=== PATIENT | male | born 1960 | race Caucasian/White ===

== ENCOUNTER → 2018-03-31 | Outpatient (CLI) | payer OTHER ==
--- NOTE | 2018-03-31 10:44 | DIAGNOSTIC IMAGING REPORT ---
R KNEE 2 VIEWS ROUTINE CLINICAL HISTORY: Right knee pain COMPARISON: None. DISCUSSION: No acute fractures or dislocations are visualized. There are moderate degenerative changes within the patellofemoral joint. There is a spur/loose body at the level of the anterior femorotibial joint space as visualized in the lateral view. IMPRESSION: 1. No acute fractures 2. Degenerative changes Electronically signed by: Aron Denney M.D. 03/31/2018 10:43 AM Dictated Date/Time: 03/31/2018 10:42 AM
--- NOTE | 2018-03-31 10:47 | DIAGNOSTIC IMAGING REPORT ---
L KNEE 1 OR 2 VIEWS ROUTINE CLINICAL HISTORY: 58 years-old Male presenting with BILAT KNEE PAIN. TECHNIQUE: Frontal and lateral views of the left knee were obtained. COMPARISON: None. FINDINGS: Knee joint congruent. Mild medial joint space loss. Minimal osteophytosis noted all 3 compartments. No acute fracture or malalignment. No advanced degenerative change. No radiographic soft tissue abnormality. IMPRESSION: Minimal tricompartmental degenerative change. No acute osseous injury. Electronically signed by: Isak Stevenson M.D. 03/31/2018 10:46 AM Dictated Date/Time: 03/31/2018 10:45 AM
--- NOTE | 2018-03-31 10:49 | DIAGNOSTIC IMAGING REPORT ---
L HIP UNILATERAL 2 VIEWS CLINICAL HISTORY: 58 years-old Male presenting with BILAT KNEE PAIN. TECHNIQUE: Frontal and frog-leg lateral views of the left hip were obtained. COMPARISON: None. FINDINGS: Significant superior joint space loss with osteophytosis and subchondral sclerosis evident at involving both the femoral head and acetabulum. There is also slight deformity of the superior aspect of the left femoral head. No acute fracture or malalignment. Visualized portion of the bony pelvis intact. Calcification of the vas deferentia likely indicates underlying diabetes. No radiographic soft tissue abnormality. IMPRESSION: Advanced degenerative changes of the left hip. No acute osseous injury. Electronically signed by: Isak Stevenson M.D. 03/31/2018 10:48 AM Dictated Date/Time: 03/31/2018 10:46 AM
--- NOTE | 2018-03-31 11:06 | DIAGNOSTIC IMAGING REPORT ---
LUMBAR SPINE 5 VIEWS CLINICAL HISTORY: Bilateral leg pain. Low back pain. FINDINGS: 5 views of the lumbar spine are obtained. No prior studies are available for comparison at the time of dictation. The skeletal structures are osteopenic. There is no radiographic evidence of fracture or malalignment involving the lumbar spine. Anterior and lateral marginal osteophytes are seen throughout. The transverse and spinous processes appear intact. There is no evidence of spondylolysis. Mild facet arthropathy is seen in the lower lumbar region. There is moderate disc space narrowing at L5-S1. Mild disc space narrowing is seen at the remaining lumbar levels. The bony pelvis is intact as imaged. Sclerotic change is noted in the sacroiliac joints. Enthesophytes arise from the anterior superior iliac spine bilaterally. There is mild atherosclerotic calcification of the abdominal aorta. No bowel obstruction is seen. IMPRESSION: 1. No acute bony abnormality is seen involving the lumbar spine. 2. Osteopenia and spondylotic change as above. Dictated: 03/31/2018 10:46 AM Transcribed: 03/31/2018 11:06 AM [facility] Electronically signed by: Zander Parham M.D. 03/31/2018 11:09 AM Dictated Date/Time: 03/31/2018 10:46 AM
[2018-03-31 12:28] LABS: HEMATOCRIT 44.8 % (42-52); HEMOGLOBIN 15.6 g/dL (14.0-18.0); MEAN CELL VOLUME 92.4 fL (80-100); MEAN CORPUSCULAR HEMOGLOBIN 32.2 pg (25-34); MEAN CORPUSCULAR HGB CONC 34.8 g/dl (32-36); MEAN PLATELET VOLUME 9.5 fL (7.4-10.4); PLATELET COUNT 333 K/uL (130-400); RED CELL DISTRIBUTION WIDTH CV 12.8 % (11.5-14.5); RED CELL DISTRIBUTION WIDTH SD 43.1 fL (36.4-46.3); WHITE BLOOD COUNT 5.33 K/uL (4.8-10.8)
[2018-03-31 13:37] LABS: ALBUMIN 4.2 gm/dl (3.4-5.0); ALKALINE PHOSPHATASE 43 U/L (45-117); ALT/SGPT 42 U/L (12-78); AST/SGOT 24 U/L (15-37); BLOOD UREA NITROGEN 16 mg/dl (7-18); CALCIUM 9.2 mg/dl (8.5-10.1); CARBON DIOXIDE 23 mmol/L (21-32); CHOLESTEROL 219 mg/dl (0-200); CREATININE 0.94 mg/dl (0.60-1.40); GLUCOSE 95 mg/dl (70-99); LDL CHOLESTEROL CALCULATED 124 mg/dl; POTASSIUM 4.2 mmol/L (3.5-5.1); SODIUM 138 mmol/L (136-145); TOTAL PROTEIN 7.6 gm/dl (6.4-8.2)
== END | disposition home or self-care (01) ==
LOC: C.LABPVFM 10:10
PROVIDERS: ATTEND Family Medicine
DX: M25.561 Pain in right knee (principal); M25.562 Pain in left knee; M17.11 Unilateral primary osteoarthritis, right knee; M16.12 Unilateral primary osteoarthritis, left hip; M85.88 Other specified disorders of bone density and structure, other site; M47.816 Spondylosis without myelopathy or radiculopathy, lumbar region

== ENCOUNTER 2023-01-24 18:25 | Inpatient (IN) ==
--- NOTE | 2023-01-24 18:51 | ED Triage Note ---
Date of Service January 24, 2023 History of Present Illness This patient was briefly evaluated while in triage. An abbreviated physical exam was performed. This patient is a 62-year-old Male who presents to the ED for evaluation of chest tightness that began today, radiating into the left arm and left jaw. H ypertensive today. No shortness of breath. No cardiac history. Does not take any medications Physical Exam CONSTITUTIONAL: in no acute pain or distress, resting comfortably SKIN: pink, warm, dry CARDIAC: regular rate and rhythm RESPIRATORY: in no respiratory distress, lungs clear to auscultation Initial orders for labs and / or imaging were placed and patient was placed in the waiting area until a bed is available. Please see further documentation for the full ED course.
[2023-01-24] MEDS ORDERED: ASPIRIN CHEW 324 MG PO STA (19:03)
[2023-01-24] MEDS ORDERED: LABETALOL HCL IV 5 MG/ML 20ML IV STA (19:09)
[2023-01-24] MEDS ORDERED: LABETALOL HCL IV 5 MG/ML 20ML IV ONE (19:09)
--- NOTE | 2023-01-24 19:17 | Emergency Department Note ---
Impression & Plan Acute HI, Hypertension, Precordial chest pain, Acute hyperglycemia ED Provider Note NAME: MELANY CHAVEZ AGE: 62 SEX: M : 1960 ARRIVES VIA: Walk-In INFORMANT: [Patient] ED PROVIDER(S): [Zander Rock MD] CHIEF COMPLAINT: Chest pain HISTORY OF PRESENT ILLNESS: The patient is a 62-year-old male who states that he has had chest tightness for about 8 hours. This all started after he was at the dentist. He also feels some left arm pain and discomfort. The pain across the chest has been a 3-5/10. It has not gone away all day. He does not think exertion makes it worse. He is not necessarily short of breath. There has been no sweating or nausea. He has no history of diabetes, high cholesterol or high blood pressure. He does not smoke. He does have a strong family history of coronary disease. The patient states that he has not noticed any chest pain or dyspnea the last few days with exertion or any type of activity. PMHx/PSHx: See Below SOCIAL HISTORY: See Below. PHYSICAL EXAM: GENERAL: Patient is in no acute distress. HEENT: No acute trauma, normocephalic atraumatic, mucous membranes moist, no nasal congestion. NECK: No stridor, no adenopathy, no meningismus, trachea is midline. LUNGS: Clear to auscultation bilaterally, no wheeze, no rhonchi, breath sounds equal. HEART: Without murmurs gallops or rubs, regular rate and rhythm. ABDOMEN: Soft, nontender, bowel sounds positive, no peritonitis. Nontender umbilical hernia. EXTREMITIES: No cyanosis or edema, full range of motion of all the joints without pain or difficulty, no signs for acute trauma. NEUROLOGIC: Oriented x 3, no acute motor or sensory deficits, no focal weakness. SKIN: No rash, no jaundice, no diaphoresis. DIFFERENTIAL DIAGNOSIS: HI, cardiac ischemia, aortic dissection, PE, CHF, anemia, musculoskeletal pain, among others. EMERGENCY DEPARTMENT COURSE/PROCEDURES: Prior/Outside records reviewed: None. ECG per my interpretation: Indication was chest pain. The ECG shows a normal sinus rhythm with a rate of 82. There is some subtle ST elevation in the inferior leads with some ST depression in leads I and aVL. Findings are consistent with acute HI. There are no PVCs, QTc is 413. Compared to an ECG from 13 July 2018, the ST elevation and ST depression changes are new. Continuous Cardiac Monitoring per my interpretation: An order was placed for continuous cardiac monitoring. The monitor shows a rate of with 90 with normal sinus rhythm. Critical Care Note: I have personally spent 39 minutes of critical care time in the direct management of this patient. This includes bedside care, interpretation of diagnostic studies, and testing, discussion with consultants, patient, and family members, and other required patient management activities. This 39 minutes is in excess of all separately billable procedures. MEDICAL DECISION MAKING: There is no leukocytosis or concerning anemia. There is a normal platelet count. No coagulopathy. No renal failure. Glucose was high at over 300. No concerning liver enzyme elevation. Initial troponin was not elevated making cardiac ischemia less likely. ECG demonstrated what appears to be an acute inferior HI with some lateral reciprocal changes. No pancreatitis. The patient appeared to be in a euthyroid state. COVID test returned negative. Chest film did not show mediastinal widening, pneumonia or pneumothorax per my review. Patient presented with chest pain and some left arm discomfort. His ECG suggested an acute inferior HI. A heart alert was called. Patient was hypertensive. He was given IV labetalol. He was given oral aspirin. I did speak with the diabetic educator, Dr. Mckeon. Patient is going to the cardiac catheterization lab. Dr. Mckeon did see the patient here in the ED. He was at bedside. I spoke with the on-call hospitalist, I did speak with the case folder. The patient is aware of all his findings and is aware of our concerns. DISPOSITION: The patient's presentation and findings warrant a hospital stay. 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 SIDE History of discectomy LUMBAR History of tonsillectomy History of tooth extraction History of total hip arthroplasty LEFT Family History (Updated 01/24/23 @ 21:47 by Walter S. Brezovic, TILE BURNER) Father , 86 Family history of diabetes mellitus BORDERLINE Heart disease Hypertension Myocardial infarction Dyslipidemia Mother Heart disease Hypertension Dyslipidemia Social History Smoking Status: Never smoker Second Hand Exposure: No; Hx Alcohol Use: Yes Alcohol type: other Hx Substance Use: No Preferred Language: Lithuanian Communication Ability: Effective Plating Machine Operator Required: No Beliefs That Will Affect Care: None Current Living Situation: Spouse Feels Safe at Home: Yes Assistive Devices: Glasses Allergies Allergies Allergy/AdvReac Type Severity Reaction Status Date / Time No Known Allergies Allergy Verified 12/07/18 12:16 Home Meds Home Medications Medication Instructions Recorded Confirmed loperamide 2 mg tablet (Imodium 1 tab PO QAM 07/07/18 12/07/18 A-D) meloxicam 15 mg tablet (Mobic) 15 mg PO QAM 07/07/18 12/07/18 multivitamin 1 tab PO DAILY 07/07/18 12/07/18 omega [id number]-[id number]-fish oil 1,000 mg 2 cap PO QAM 07/07/18 12/07/18 (120 mg-180 mg) capsule (Fish Oil) vitamins A,C,and E-selenium 1 cap PO DAILY 07/07/18 12/07/18 capsule (Super Antioxidant capsule) naproxen sodium 220 mg tablet 440 mg PO DAILY 12/07/18 12/07/18 (Aleve) Results & Data (ED) Vital Signs Vital Signs - 24 hr 01/24/23 18:25 01/24/23 19:12 01/24/23 19:12 Temperature 36.8 C Temperature Source Temporal Artery Scan Pulse Rate 90 Pulse Rate from SpO2 Sensor Respiratory Rate 20 Respiratory Effort / Characteristics Non-Labored Spontaneous Respiratory Depth Normal Blood Pressure 205/114 H Blood Pressure Mean 144 Pulse Oximetry 96 100 Oxygen Delivery Method Room Air Room Air Room Air Sepsis Recent Fever Within 48 Hours No Sepsis New/Unexplained Change in Mental Status No Sepsis Action Taken by Nursing No Action Required 01/24/23 19:07 01/24/23 19:12 01/24/23 19:12 Temperature Temperature Source Pulse Rate 90 98 H Pulse Rate from SpO2 Sensor 89 99 H Respiratory Rate 18 12 Respiratory Effort / Characteristics Respiratory Depth Blood Pressure 206/104 H Blood Pressure Mean 138 Pulse Oximetry 97 96 Oxygen Delivery Method Sepsis Recent Fever Within 48 Hours Sepsis New/Unexplained Change in Mental Status Sepsis Action Taken by Nursing 01/24/23 19:18 01/24/23 19:18 01/24/23 19:20 Temperature Temperature Source Pulse Rate 81 Pulse Rate from SpO2 Sensor 82 Respiratory Rate 23 Respiratory Effort / Characteristics Respiratory Depth Blood Pressure 206/113 H 180/103 H Blood Pressure Mean 144 128 Pulse Oximetry 96 Oxygen Delivery Method Sepsis Recent Fever Within 48 Hours Sepsis New/Unexplained Change in Mental Status Sepsis Action Taken by Nursing 01/24/23 19:20 01/24/23 20:37 01/24/23 20:38 Temperature Temperature Source Pulse Rate 85 87 Pulse Rate from SpO2 Sensor 84 86 Respiratory Rate 17 28 H Respiratory Effort / Characteristics Respiratory Depth Blood Pressure 156/87 H Blood Pressure Mean 114 Pulse Oximetry 95 95 Oxygen Delivery Method Sepsis Recent Fever Within 48 Hours Sepsis New/Unexplained Change in Mental Status Sepsis Action Taken by Nursing 01/24/23 20:38 01/24/23 20:45 Temperature Temperature Source Pulse Rate 83 85 Pulse Rate from SpO2 Sensor 83 85 Respiratory Rate 20 18 Respiratory Effort / Characteristics Respiratory Depth Blood Pressure Blood Pressure Mean Pulse Oximetry 94 96 Oxygen Delivery Method Sepsis Recent Fever Within 48 Hours Sepsis New/Unexplained Change in Mental Status Sepsis Action Taken by Usp Medications Current Medication List: was personally reviewed by me Laboratory Data Attestation: I reviewed the patient's lab results. 01/24/23 21:04 01/24/23 19:10 Lab Results 01/24/23 01/24/23 01/24/23 Range/Units 19:10 19:10 19:10 WBC 9.52 (4.8-10.8) K/ul RBC 5.34 (4.70-6.10) M/uL Hgb 17.0 (14.0-18.0) g/dl POC Hgb (14.0-18.0) g/dl Hct 47.4 (42.0-52.0) % POC Hct (42-52) % MCV 88.8 (80.0-100.0) fL MCH 31.8 (25.0-34.0) pg MCHC 35.9 (32.0-36.0) g/dL RDW Std Deviation 39.2 (36.4-46.3) fL RDW Coeff of Jimmy 12.1 (11.5-14.5) % Plt Count 331 (130-400) K/uL MPV 9.3 L (9.4-12.4) fL Immature Gran % (Auto) 0.2 % Neut % (Auto) 79.2 % Lymph % (Auto) 14.5 % Sharp % (Auto) 5.0 % Eos % (Auto) 0.4 % Baso % (Auto) 0.7 % Neut # (Auto) 7.53 H (1.40-6.50) K/uL Lymph # (Auto) 1.38 (1.2-3.4) K/uL Sharp # (Auto) 0.48 (0.11-0.59) K/uL Eos # (Auto) 0.04 (0-0.50) K/uL Baso # (Auto) 0.07 (0-0.2) K/uL Immature Gran # (Auto) 0.02 (0.01-0.20) K/uL PT 10.4 (9.0-12.0) Seconds INR 1.0 (0.9-1.1) APTT 25.9 (21.0-31.0) Seconds PTT Ratio 0.9 Activ Coag Time Kaolin (94-140) SECONDS POC Sodium (135-144) mmol/L Sodium 132 L (136-145) mmol/L POC Potassium (3.3-5.0) mmol/L Potassium 4.2 (3.5-5.1) mmol/L POC Chloride (101-112) mmol/L Chloride 100 (98-107) mmol/L Carbon Dioxide 21 (21-32) mmol/L POC Total CO2 (24-31) mmol/L Anion Gap 11 (3-11) POC Anion Gap (16-25) mmol/L POC BUN (7-18) mg/dl BUN 13 (6-23) mg/dl Creatinine 0.99 (0.6-1.4) mg/dl POC Creatinine (0.6-1.3) mg/dl Est Cr Clr Drug Dosing 97.4 ml/min Est GFR ( Amer) 93.6 ml/min Est GFR (Non-Af Amer) 80.7 ml/min BUN/Creatinine Ratio 13.1 (10-20) Glucose 358 H* (70-99(Fasting)) mg/dl POC Glucose (other) (70-99) mg/dl Calcium 9.9 (8.5-10.1) mg/dl POC Ioniz Calcium Brooke (1.12-1.32) mmol/l Magnesium 2.0 (1.7-2.4) mg/dl Total Bilirubin 0.6 (0.2-1.0) mg/dl AST 35 (13-39) U/L ALT 57 H (7-52) U/L Alkaline Phosphatase 43 (34-104) U/L Troponin I High Sens 19.9 (0-20) pg/ml Total Protein 7.6 (6.0-8.3) gm/dl Albumin 4.7 (3.4-5.0) gm/dl Globulin 2.9 (2.5-4.0) gm/dl Albumin/Globulin Ratio 1.6 (0.9-2) Lipase 27 (11-82) U/L SARS-CoV-2, RNA, NAAT (NEGATIVE) 01/24/23 01/24/23 01/24/23 Range/Units 19:13 19:14 20:01 WBC (4.8-10.8) K/ul RBC (4.70-6.10) M/uL Hgb (14.0-18.0) g/dl POC Hgb 17.3 (14.0-18.0) g/dl Hct (42.0-52.0) % POC Hct 51 (42-52) % MCV (80.0-100.0) fL MCH (25.0-34.0) pg MCHC (32.0-36.0) g/dL RDW Std Deviation (36.4-46.3) fL RDW Coeff of Jimmy (11.5-14.5) % Plt Count (130-400) K/uL MPV (9.4-12.4) fL Immature Gran % (Auto) % Neut % (Auto) % Lymph % (Auto) % Sharp % (Auto) % Eos % (Auto) % Baso % (Auto) % Neut # (Auto) (1.40-6.50) K/uL Lymph # (Auto) (1.2-3.4) K/uL Sharp # (Auto) (0.11-0.59) K/uL Eos # (Auto) (0-0.50) K/uL Baso # (Auto) (0-0.2) K/uL Immature Gran # (Auto) (0.01-0.20) K/uL PT (9.0-12.0) Seconds INR (0.9-1.1) APTT (21.0-31.0) Seconds PTT Ratio Activ Coag Time Kaolin 341 H (94-140) SECONDS POC Sodium 134 L (135-144) mmol/L Sodium (136-145) mmol/L POC Potassium 4.2 (3.3-5.0) mmol/L Potassium (3.5-5.1) mmol/L POC Chloride 100 L (101-112) mmol/L Chloride (98-107) mmol/L Carbon Dioxide (21-32) mmol/L POC Total CO2 22 L (24-31) mmol/L Anion Gap (3-11) POC Anion Gap 17.0 (16-25) mmol/L POC BUN 13 (7-18) mg/dl BUN (6-23) mg/dl Creatinine (0.6-1.4) mg/dl POC Creatinine 0.8 (0.6-1.3) mg/dl Est Cr Clr Drug Dosing ml/min Est GFR ( Amer) ml/min Est GFR (Non-Af Amer) ml/min BUN/Creatinine Ratio (10-20) Glucose (70-99(Fasting)) mg/dl POC Glucose (other) 362 H* (70-99) mg/dl Calcium (8.5-10.1) mg/dl POC Ioniz Calcium Brooke 1.20 (1.12-1.32) mmol/l Magnesium (1.7-2.4) mg/dl Total Bilirubin (0.2-1.0) mg/dl AST (13-39) U/L ALT (7-52) U/L Alkaline Phosphatase (34-104) U/L Troponin I High Sens (0-20) pg/ml Total Protein (6.0-8.3) gm/dl Albumin (3.4-5.0) gm/dl Globulin (2.5-4.0) gm/dl Albumin/Globulin Ratio (0.9-2) Lipase (11-82) U/L SARS-CoV-2, RNA, NAAT NEGATIVE (NEGATIVE) 01/24/23 Range/Units 20:11 WBC (4.8-10.8) K/ul RBC (4.70-6.10) M/uL Hgb (14.0-18.0) g/dl POC Hgb (14.0-18.0) g/dl Hct (42.0-52.0) % POC Hct (42-52) % MCV (80.0-100.0) fL MCH (25.0-34.0) pg MCHC (32.0-36.0) g/dL RDW Std Deviation (36.4-46.3) fL RDW Coeff of Jimmy (11.5-14.5) % Plt Count (130-400) K/uL MPV (9.4-12.4) fL Immature Gran % (Auto) % Neut % (Auto) % Lymph % (Auto) % Sharp % (Auto) % Eos % (Auto) % Baso % (Auto) % Neut # (Auto) (1.40-6.50) K/uL Lymph # (Auto) (1.2-3.4) K/uL Sharp # (Auto) (0.11-0.59) K/uL Eos # (Auto) (0-0.50) K/uL Baso # (Auto) (0-0.2) K/uL Immature Gran # (Auto) (0.01-0.20) K/uL PT (9.0-12.0) Seconds INR (0.9-1.1) APTT (21.0-31.0) Seconds PTT Ratio Activ Coag Time Kaolin 275 H (94-140) SECONDS POC Sodium (135-144) mmol/L Sodium (136-145) mmol/L POC Potassium (3.3-5.0) mmol/L Potassium (3.5-5.1) mmol/L POC Chloride (101-112) mmol/L Chloride (98-107) mmol/L Carbon Dioxide (21-32) mmol/L POC Total CO2 (24-31) mmol/L Anion Gap (3-11) POC Anion Gap (16-25) mmol/L POC BUN (7-18) mg/dl BUN (6-23) mg/dl Creatinine (0.6-1.4) mg/dl POC Creatinine (0.6-1.3) mg/dl Est Cr Clr Drug Dosing ml/min Est GFR ( Amer) ml/min Est GFR (Non-Af Amer) ml/min BUN/Creatinine Ratio (10-20) Glucose (70-99(Fasting)) mg/dl POC Glucose (other) (70-99) mg/dl Calcium (8.5-10.1) mg/dl POC Ioniz Calcium Brooke (1.12-1.32) mmol/l Magnesium (1.7-2.4) mg/dl Total Bilirubin (0.2-1.0) mg/dl AST (13-39) U/L ALT (7-52) U/L Alkaline Phosphatase (34-104) U/L Troponin I High Sens (0-20) pg/ml Total Protein (6.0-8.3) gm/dl Albumin (3.4-5.0) gm/dl Globulin (2.5-4.0) gm/dl Albumin/Globulin Ratio (0.9-2) Lipase (11-82) U/L SARS-CoV-2, RNA, NAAT (NEGATIVE) Administered Medications Sodium Chloride (Nss 1000ml) 1,000 mls @ 75 mls/hr IV .[id number] [facility] Stop: 02/23/23 20:44 Last Admin: 01/24/23 21:38 Dose: 75 mls/hr Documented By: IVORY Insulin Aspart (Insulin Aspart Per Unit) 0 units SC ACHS VERA Stop: 02/23/23 22:59 Last Admin: 01/24/23 22:45 Dose: 5 units Documented By: TMG Co-signed By: CP Metoprolol Tartrate (Metoprolol Tartrate 25 Mg Tab) 25 mg PO BID VERA Stop: 02/23/23 20:59 Last Admin: 01/24/23 21:38 Dose: 25 mg Documented By: TMG Discontinued Medications Aspirin (Aspirin Chew 324 Mg) 324 mg PO NOW STA Stop: 01/24/23 19:04 Last Admin: 01/24/23 19:07 Dose: 324 mg Documented By: NATHALIE Fentanyl Citrate (Fentanyl Citrate 100 Mcg/2 Ml Vial) Confirm Administered Dose 100 mcg .ROUTE .STK-MED ONE Stop: 01/24/23 19:23 Last Admin: 01/24/23 20:21 Dose: 25 mcg Documented By: ROSE Heparin Sodium (Porcine) (Heparin (Porcine) 1000 Unit/Ml 10 Ml (Crematorium Operator Use Only)) Confirm Administered Dose 10,000 units .ROUTE .STK-MED ONE Stop: 01/24/23 19:23 Last Admin: 01/24/23 20:20 Dose: 6,000 units Documented By: ROSE Heparin Sodium/Sodium Chloride (Heparin In Nss Infusion 1000 Unit/500 Ml (2 U/Ml) Bag) Confirm Administered Dose 3,000 units IV .STK-MED ONE Stop: 01/24/23 19:23 Last Admin: 01/24/23 20:19 Dose: 3,000 units Documented By: CARMELO Hydralazine HCl (Hydralazine Hcl 20 Mg/Ml Vial) Confirm Administered Dose 20 mg .ROUTE .STK-MED ONE Stop: 01/24/23 19:38 Last Admin: 01/24/23 20:20 Dose: 10 mg Documented By: ROSE Labetalol HCl (Labetalol Hcl Iv 5 Mg/Ml 20ml) 10 mg IV NOW STA Stop: 01/24/23 19:10 Last Admin: 01/24/23 19:10 Dose: 10 mg Documented By: NATHALIE Co-signed By: BO Labetalol HCl (Labetalol Hcl Iv 5 Mg/Ml 20ml) Confirm Administered Dose 10 mg IV .STK-MED ONE Stop: 01/24/23 19:10 Last Admin: 01/24/23 19:12 Dose: Not Given Documented By: NATHALIE Metoprolol Tartrate (Metoprolol Tartrate 1 Mg/Ml Vial) Confirm Administered Dose 5 mg IV .STK-MED ONE Stop: 01/24/23 19:58 Last Admin: 01/24/23 20:20 Dose: 5 mg Documented By: ROSE Metoprolol Tartrate (Metoprolol Tartrate 1 Mg/Ml Vial) Confirm Administered Dose 5 mg IV .STK-MED ONE Stop: 01/24/23 20:05 Last Admin: 01/24/23 20:20 Dose: 5 mg Documented By: ROSE Midazolam HCl (Midazolam Hcl 1 Mg/Ml 2ml Vial) Confirm Administered Dose 2 mg .ROUTE .STK-MED ONE Stop: 01/24/23 19:23 Last Admin: 01/24/23 20:20 Dose: 1 mg Documented By: ROSE Miscellaneous (Icu Protocol For Hyperglycemia) 1 each N/A ACHS VERA Stop: 01/26/23 20:59 Last Admin: 01/24/23 21:38 Dose: 1 each Documented By: IVORY Nicardipine HCl (Nicardipine Hcl Inj 2.5 Mg/Ml 10 Ml Amp) Confirm Administered Dose 25 mg .ROUTE .STK-MED ONE Stop: 01/24/23 19:23 Last Admin: 01/24/23 20:19 Dose: 25 mg Documented By: CARMELO Nitroglycerin/Dextrose (Nitroglycerin/D5w 100mcg/Ml 20ml Syr) Confirm Administered Dose 2,000 mcg .ROUTE .STK-MED ONE Stop: 01/24/23 19:24 Last Admin: 01/24/23 20:19 Dose: 2,000 mcg Documented By: CARMELO Ticagrelor (Ticagrelor 90 Mg Tab) Confirm Administered Dose 180 mg .ROUTE .STK- MED ONE Stop: 01/24/23 20:22 Last Admin: 01/24/23 20:22 Dose: 180 mg Documented By: ROSE Imaging Data Attestation: I personally reviewed and interpreted this imaging study as follows: My Impression: Chest x-ray per my review: There is no mediastinal widening, pneumonia or CHF Discharge Plan Visit Data Chief Complaint: Shortness of Breath/Dyspnea Stated Complaint: SOB,HBP,NO APPETITE, ED Provider: Zander Rock Discharge Problem: Acute HI, Hypertension, Precordial chest pain, Acute hyperglycemia Patient Disposition: Admitted As Inpatient Condition: Serious Discharge Instructions Interventions: ED Discharge Assessment Last Done: 01/24/23 19:30
[2023-01-24] MEDS ORDERED: fentaNYL citrate PF 100 MCG/2 ML VIAL ONE (19:22)
[2023-01-24] MEDS ORDERED: HEPARIN (PORCINE) 1000 UNIT/ML 10 ML (CATH LAB USE ONLY) ONE (19:22)
[2023-01-24] MEDS ORDERED: MIDAZOLAM HCL 1 MG/ML 2ML VIAL ONE (19:22)
[2023-01-24] MEDS ORDERED: niCARdipine HCL INJ 2.5 MG/ML 10 ML AMP ONE (19:22)
[2023-01-24] MEDS ORDERED: NITROGLYCERIN/D5W 100MCG/ML 20ML SYR ONE (19:23)
[2023-01-24 19:25] LABS: Basophils # (auto) 0.07 K/uL (0-0.2); Basophils % (auto) 0.7 %; Eosinophils # (auto) 0.04 K/uL (0-0.50); Eosinophils % (auto) 0.4 %; Hematocrit (blood only) 47.4 % (42.0-52.0); Immature Granulocytes # (auto) 0.02 K/uL (0.01-0.20); Immature Granulocytes % (auto) 0.2 %; Lymphocytes # (auto) 1.38 K/uL (1.2-3.4); Lymphocytes % (auto) 14.5 %; Mean Corpuscular Hemoglobin 31.8 pg (25.0-34.0); Mean Corpuscular Hgb Conc 35.9 g/dL (32.0-36.0); Mean Corpuscular Volume 88.8 fL (80.0-100.0); Mean Platelet Volume 9.3 fL (9.4-12.4); Monocytes # (auto) 0.48 K/uL (0.11-0.59); Neutrophils # (auto) 7.53 K/uL (1.40-6.50); Neutrophils % (auto) 79.2 %; Platelet Count 331 K/uL (130-400); RDW Coefficient of Variation 12.1 % (11.5-14.5); RDW Standard Deviation 39.2 fL (36.4-46.3); Red Blood Count 5.34 M/uL (4.70-6.10); White Blood Count 9.52 K/ul (4.8-10.8)
[2023-01-24 19:25] LABS: iSTAT Creatinine 0.8 mg/dl (0.6-1.3); iSTAT Hemoglobin 17.3 g/dl (14.0-18.0); iSTAT Ionized Calcium 1.2 mmol/l (1.12-1.32); iSTAT Potassium 4.2 mmol/L (3.3-5.0)
[2023-01-24] MEDS ORDERED: hydrALAZINE HCL 20 MG/ML VIAL ONE (19:37)
[2023-01-24 19:48] LABS: Partial Thromboplastin Ratio 0.9; Partial Thromboplastin Time 25.9 Seconds (21.0-31.0); Prothrombin Time 10.4 Seconds (9.0-12.0)
[2023-01-24 19:50] LABS: Albumin Level 4.7 gm/dl (3.4-5.0); Bilirubin,Total 0.6 mg/dl (0.2-1.0); Calcium 9.9 mg/dl (8.5-10.1); Potassium 4.2 mmol/L (3.5-5.1); Troponin I High Sensitivity 19.9 pg/ml (0-20)
[2023-01-24] MEDS ORDERED: METOPROLOL TARTRATE 1 MG/ML VIAL IV ONE ×2 (19:57→20:04)
[2023-01-24 20:14] LABS: Albumin Globulin Ratio 1.6 (0.9-2); BUN Creatinine Ratio 13.1 (10-20); Creatinine Clr Calc Pharmacy 97.4 ml/min; Est GFR (African American) 93.6 ml/min; Est GFR (Non-African American) 80.7 ml/min; Globulin 2.9 gm/dl (2.5-4.0); Total Protein 7.6 gm/dl (6.0-8.3)
[2023-01-24] MEDS ORDERED: TICAGRELOR 90 MG TAB ONE (20:21)
[2023-01-24] MEDS ORDERED: ATROPINE SULFATE 0.1 MG/ML 10ML SYR IV PRN (20:32)
[2023-01-24] MEDS ORDERED: NITROGLYCERIN SL 0.4 MG/TAB TAB SL PRN ×2 (20:32→21:03)
[2023-01-24] MEDS ORDERED: ONDANSETRON INJ 2 MG/ML 2 ML VIAL IV PRN (20:32)
[2023-01-24] MEDS ORDERED: ACETAMINOPHEN 325 MG TAB PO PRN (20:32)
[2023-01-24] MEDS ORDERED: SODIUM CHLORIDE 0.9% 1000ML 1,000 ML IV SCH (20:45)
--- NOTE | 2023-01-24 20:55 | History & Physical Report ---
Date of Service January 24, 2023 Assessment & Plan (1) STEMI (ST elevation myocardial infarction): Plan: 62yo male presenting with inferior STEMI s/p BIANCA x 2 to RCA. Patient is currently doing well. Blood pressure has improved. He denies chest pain or palpitations. -Admit to MICU -Trend troponin q 6 hours x 3 sets -Check 2D echo -Continue DAPT with Brillinta and ASA - initiated post catheterization to be continued for 1-2 years as tolerated -Atorvastatin 40mg po daily -Lisinopril 5mg po daily -Metoprolol 25mg po BID -Check HgbA1C and Lipid panel (2) HTN (hypertension): Plan: Elevated blood pressure in the ER. Patient was administered Labetalol 10mg IV, Nicardipine 25mg and Hydralazine 10mg IV as well as Metoprolol 5mg IV x 2 doses. Patient denies having markedly elevated BP readings in the past. BP presently 165/91. -Metoprolol 25mg po BID initiated -Lisinopril 5mg po daily initiated -Continue to monitor BP History of Present Illness Chief Complaint: Chest pain Primary Care Provider: Siri Reynolds MD 62yo male with no significant past medical history presenting with chest pain. Patient felt fairly well earlier today 01/24/23. He was seen at the dentist after which he developed some left arm pain and discomfort across his chest. He denied diaphoresis, SOB, nausea or exertional chest discomfort. Patient with no significant cardiac risk factors. He was last seen by his PCP in 2018. In the ER EKG with NSR at 82, ST elevation in inferior leads with depressions in I and aVL. Findings concerning for acute inferior STEMI. Heart Alert called from the ER and patient was taken to the concrete laborer. He was found to have stenosis of the mid-RCA with placement of BIANCA x 2 in early mid segment and in the proximal segment of the RCA. Patient was started on DAPT with ASA and Brillinta and transferred to the MICU for overnight care. During my encounter patient with no complaints. He denies chest pain, SOB or palpitations. No pain in right wrist or hand. Allergies Allergy/AdvReac Type Severity Reaction Status Date / Time No Known Allergies Allergy Verified 12/07/18 12:16 Home Medications Medication Instructions Recorded Confirmed Type loperamide 2 mg tablet (Imodium 1 tab PO QAM 07/07/18 12/07/18 History A-D) meloxicam 15 mg tablet (Mobic) 15 mg PO QAM 07/07/18 12/07/18 History multivitamin 1 tab PO DAILY 07/07/18 12/07/18 History omega 9-kmg-ill-fish oil 1,000 mg 2 cap PO QAM 07/07/18 12/07/18 History (120 mg-180 mg) capsule (Fish Oil) vitamins A,C,and E-selenium 1 cap PO DAILY 07/07/18 12/07/18 History capsule (Super Antioxidant capsule) naproxen sodium 220 mg tablet 440 mg PO DAILY 12/07/18 12/07/18 History (Aleve) Past Med/Surg History Medical History Chronic diarrhea Degenerative disc disease, lumbar Family history of diabetes mellitus FATHER-BORDERLINE DM Hyperlipidemia BORDERLINE Osteoarthritis Peripheral neuropathy 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 Beliefs That Will Affect Care: None Current Living Situation: Spouse Feels Safe at Home: Yes Assistive Devices: Glasses Review of Systems Review of Systems: All systems reviewed & are unremarkable except as noted in HPI & below Physical Exam Physical Exam: General: patient resting comfortably, NAD, non-toxic in appearance, AA&O x 4 Skin: warm, dry, intact, no rashes or lesions HEENT: NC/AT, PERRL, EOMI, anicteric sclera, conjunctiva without injection, external ear normal to inspection and nontender, nares patent, moist mucus me mbranes, dentition intact, no oropharyngeal lesions, neck supple, trachea midline, no LAD, no thyromegaly, no JVD Heart: +S1/S2, regular, no m/r/g Lungs: equal air entry bilaterally, no rales/rhonchi/wheezes Abd: +BS, soft, NT/ND, no masses/organomegaly/ascites Ext: warm, 2+ pulses in UE/LE bilaterally, no clubbing/cyanosis or edema, right radial occlusion band present Neuro: nonfocal, patient AA&O x 4, speech intact, no facial droop, moving all extremities on command with equal strength 5/5 Results & Data Results & Data Vital Signs (Past 12 Hours) Vital Signs Temp Pulse Resp BP Pulse Ox O2 Del Method 01/24/23 19:20 85 17 95 01/24/23 19:20 180/103 H 01/24/23 19:18 81 23 96 01/24/23 19:18 206/113 H 01/24/23 19:12 98 H 12 96 01/24/23 19:12 206/104 H 01/24/23 19:07 90 18 97 01/24/23 19:12 Room Air 01/24/23 19:12 100 Room Air 01/24/23 18:25 36.8 C 90 20 205/114 H 96 Room Air Laboratory Results Laboratory Results WBC 9.52 K/ul (4.8-10.8) 01/24/23 19:10 RBC 5.34 M/uL (4.70-6.10) 01/24/23 19:10 Hgb 17.0 g/dl (14.0-18.0) 01/24/23 19:10 POC Hgb 17.3 g/dl (14.0-18.0) 01/24/23 19:13 Hct 47.4 % (42.0-52.0) 01/24/23 19:10 POC Hct 51 % (42-52) 01/24/23 19:13 MCV 88.8 fL (80.0-100.0) 01/24/23 19:10 MCH 31.8 pg (25.0-34.0) 01/24/23 19:10 MCHC 35.9 g/dL (32.0-36.0) 01/24/23 19:10 RDW Std Deviation 39.2 fL (36.4-46.3) 01/24/23 19:10 RDW Coeff of Jimmy 12.1 % (11.5-14.5) 01/24/23 19:10 Plt Count 331 K/uL (130-400) 01/24/23 19:10 MPV 9.3 fL (9.4-12.4) L 01/24/23 19:10 Immature Gran % (Auto) 0.2 % 01/24/23 19:10 Neut % (Auto) 79.2 % 01/24/23 19:10 Lymph % (Auto) 14.5 % 01/24/23 19:10 [place] % (Auto) 5.0 % 01/24/23 19:10 Eos % (Auto) 0.4 % 01/24/23 19:10 Baso % (Auto) 0.7 % 01/24/23 19:10 Neut # (Auto) 7.53 K/uL (1.40-6.50) H 01/24/23 19:10 Lymph # (Auto) 1.38 K/uL (1.2-3.4) 01/24/23 19:10 [place] # (Auto) 0.48 K/uL (0.11-0.59) 01/24/23 19:10 Eos # (Auto) 0.04 K/uL (0-0.50) 01/24/23 19:10 Baso # (Auto) 0.07 K/uL (0-0.2) 01/24/23 19:10 Immature Gran # (Auto) 0.02 K/uL (0.01-0.20) 01/24/23 19:10 PT 10.4 Seconds (9.0-12.0) 01/24/23 19:10 INR 1.0 (0.9-1.1) 01/24/23 19:10 APTT 25.9 Seconds (21.0-31.0) 01/24/23 19:10 PTT Ratio 0.9 01/24/23 19:10 Activ Coag Time Kaolin 275 SECONDS (94-140) H 01/24/23 20:11 POC Sodium 134 mmol/L (135-144) L 01/24/23 19:13 Sodium 132 mmol/L (136-145) L 01/24/23 19:10 POC Potassium 4.2 mmol/L (3.3-5.0) 01/24/23 19:13 Potassium 4.2 mmol/L (3.5-5.1) 01/24/23 19:10 POC Chloride 100 mmol/L (101-112) L 01/24/23 19:13 Chloride 100 mmol/L (98-107) 01/24/23 19:10 Carbon Dioxide 21 mmol/L (21-32) 01/24/23 19:10 POC Total CO2 22 mmol/L (24-31) L 01/24/23 19:13 Anion Gap 11 (3-11) 01/24/23 19:10 POC Anion Gap 17.0 mmol/L (16-25) 01/24/23 19:13 POC BUN 13 mg/dl (7-18) 01/24/23 19:13 BUN 13 mg/dl (6-23) 01/24/23 19:10 Creatinine 0.99 mg/dl (0.6-1.4) 01/24/23 19:10 POC Creatinine 0.8 mg/dl (0.6-1.3) 01/24/23 19:13 Est Cr Clr Drug Dosing 97.4 ml/min 01/24/23 19:10 Est GFR ( Amer) 93.6 ml/min 01/24/23 19:10 Est GFR (Non-Af Amer) 80.7 ml/min 01/24/23 19:10 BUN/Creatinine Ratio 13.1 (10-20) 01/24/23 19:10 Glucose 358 mg/dl (70-99(Fasting)) H* 01/24/23 19:10 POC Glucose 271 mg/dl (70-99) H 01/24/23 21:09 POC Glucose (other) 362 mg/dl (70-99) H* 01/24/23 19:13 Calcium 9.9 mg/dl (8.5-10.1) 01/24/23 19:10 POC Ioniz Calcium Brooke 1.20 mmol/l (1.12-1.32) 01/24/23 19:13 Magnesium 2.0 mg/dl (1.7-2.4) 01/24/23 19:10 Total Bilirubin 0.6 mg/dl (0.2-1.0) 01/24/23 19:10 AST 35 U/L (13-39) 01/24/23 19:10 ALT 57 U/L (7-52) H 01/24/23 19:10 Alkaline Phosphatase 43 U/L (34-104) 01/24/23 19:10 Troponin I High Sens 19.9 pg/ml (0-20) 01/24/23 19:10 Total Protein 7.6 gm/dl (6.0-8.3) 01/24/23 19:10 Albumin 4.7 gm/dl (3.4-5.0) 01/24/23 19:10 Globulin 2.9 gm/dl (2.5-4.0) 01/24/23 19:10 Albumin/Globulin Ratio 1.6 (0.9-2) 01/24/23 19:10 Lipase 27 U/L (11-82) 01/24/23 19:10 SARS-CoV-2, RNA, NAAT NEGATIVE (NEGATIVE) 01/24/23 19:14 Critical Care Time 35 minutes of critical care time PG Care Time/CCT Total # of Minutes Spent Total Time Spent with Patient: Total time spent is greater than 50% in coordination of care (as documented) at patient's floor/unit and/or counseling patient: Coding Level of Care Code None Diagnoses STEMI (ST elevation myocardial infarction) I21.3 HTN (hypertension) I10
--- NOTE | 2023-01-24 20:56 | Critical Care Consultation ---
Date of Consultation January 24, 2023 Assessment & Plan (1) Obesity: (2) HTN (hypertension): (3) STEMI (ST elevation myocardial infarction): (4) Stented coronary artery: (5) Elevated serum glucose: Plan Reason Critically Ill: 62 YOM with no known medical problems, last seen harpreet multani in 2018 for pre-op screening. Patient presents today for fatigue and left arm pain, diagnosed with STEMI and taken emergently to the laborer [facility]. He received 2 BIANCA stents tot he RCA. To the ICU for post procedural monitoring. Neuro - NO acute needs CAM ICU: Negative Cardiac - STEMI, Elevated Blood pressure without the diagnosis of HTN - Patient with Inferior wall STEMI- s/p 2 BIANCA - ECHO in morning - Goal moving forward will be managing and identifying other co-morbidities - Current initial therapy by Cardiology- BB, ASA, Brilinta, Statin - HGB A1c in AM - Lipid Panel in AM - Trend HScTNI - For his elevated BP PRN hydralazine Respiratory - NO acute needs Patient with large neck as well as obesity - STOP BANG- 5 - recommend ROSALBA screening as outpatient to decrease further CV events GI - NO acute needs RENAL/LYTES - NO acute needs - ICU electrolyte protocol - NO acute needs ENDO - Elevated serum glucose without the diagnosis of DM, Metabolic Syndrome - TSH in the morning - Lipid Panel in the morning - HGBA1C - ICU hyper/hypoglycemic protocol HEME - NO acute needs - Antiplatelet medication initiated as above ID - NO clinical suspicion for infectious etiology LINES/IV ACCESS - PIV, Continue use of these lines DVT PROPHYLAXIS - SCDS, ASA, ambulation DISPO: ICU s/p BIANCA stents. Following labs and ECHO in the morning if stable likely able to downgrade from ICU I have personally spent 40 minutes of critical care time in the direct management of this patient. This is a life/limb threatening event. This includes time spent evaluating patient, direct bedside care, chart review, placing orders, interpretation of diagnostic studies, discussion with consultants, patient, and family members, as well as other required patient management activities. This time is exclusive of all separately billable procedures, and teaching time and separate from and in addition to any other critical care service time. Thank you for allowing us to participate in the care of this patient. Please refer to my attending physician's documentation for any further recommendations. History of Present Illness Reason for Consultation: STEMI s/p BIANCA x2 to RCA Requesting Physician: Lance Mckeon Attending Physician: Lance Mckeon MD, PhD History of Present Illness 62 YOM with no reported medical problems. He is on no medications at home other than Coq10 and Glucosamine. Patient does not smoke and drinks very rarely. Patient went to the dentist this morning received Augmentin and had his teeth cleaned. Following this, he went to work. He started to note that he was feeling more tired than normal around 930-1000. He continued on his day without any progression of symptoms, made it home around noon and laid down for a bit to stretch out, but did not sleep. He got up did not eat all of his lunch for just feeling "off". He continued to help his with dinner and while doing that his left arm started to hurt. He then had his drive him to the [facility]. In the EMD the patient was noted to be hypertensive on arrival, he was given 10mg of Labetalol and 324 mg of ASA. He had ECG performed which had new ST elevations in the Inferior leads with reciprocal changes. Heart alert was called and the patient was taken emergently to the cardiac cath suite. Patient was loaded with Brilinta, Heparin, received IV Lopressor and IV Hydralazine. He received 2 BIANCA to the RCA via right radial artery access. He was recovered and transferred to the ICU. Patient is awake and oriented, reports no pain and that his left arm is back to normal. Patient will be monitored overnight for any return of symptoms or ischemia. TR band per protocol. ECG on arrival. Trend HScTNI. ECHO in AM. COVID: NEGATIVE CODE: FULL Consults: Medicine, Cardiology Allergies Allergy/AdvReac Type Severity Reaction Status Date / Time No Known Allergies Allergy Verified 12/07/18 12:16 Home Medications Medication Instructions Recorded Confirmed Type loperamide 2 mg tablet (Imodium 1 tab PO QAM 07/07/18 12/07/18 History A-D) meloxicam 15 mg tablet (Mobic) 15 mg PO QAM 07/07/18 12/07/18 History multivitamin 1 tab PO DAILY 07/07/18 12/07/18 History omega 1-bdq-wzq-fish oil 1,000 mg 2 cap PO QAM 07/07/18 12/07/18 History (120 mg-180 mg) capsule (Fish Oil) vitamins A,C,and E-selenium 1 cap PO DAILY 07/07/18 12/07/18 History capsule (Super Antioxidant capsule) naproxen sodium 220 mg tablet 440 mg PO DAILY 12/07/18 12/07/18 History (Aleve) aspirin 81 mg tablet,delayed 81 mg PO QAM #90 tabs 01/25/23 Rx release atorvastatin 40 mg tablet 40 mg PO QAM #30 tabs 01/25/23 Rx lisinopril 5 mg tablet (Zestril) 5 mg PO QAM #30 tabs 01/25/23 Rx metoprolol tartrate 25 mg tablet 25 mg PO BID #60 tabs 01/25/23 Rx ticagrelor 90 mg tablet (Brilinta) 90 mg PO BID #60 tabs 01/25/23 Rx Patient History Medical History Chronic diarrhea Degenerative disc disease, lumbar Family history of diabetes mellitus FATHER-BORDERLINE DM Hyperlipidemia BORDERLINE Osteoarthritis Peripheral neuropathy 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 SIDE History of discectomy LUMBAR History of tonsillectomy History of tooth extraction History of total hip arthroplasty LEFT Family History (Updated 01/24/23 @ 21:47 by JULES Aldridge) Father , 86 Family history of diabetes mellitus BORDERLINE Heart disease Hypertension Myocardial infarction Dyslipidemia Mother Heart disease Hypertension Dyslipidemia Social History Smoking Status: Never smoker Second Hand Exposure: No; Hx Alcohol Use: Yes Alcohol type: other Hx Substance Use: No Preferred Language: Barbadian Communication Ability: Effective Patient Access Registrar Required: No Beliefs That Will Affect Care: None Current Living Situation: Spouse Feels Safe at Home: Yes Assistive Devices: Glasses Review of Systems Review of Systems: REVIEW OF SYSTEMS: Constitutional: No fever, sweats or chills Eyes: No diplopia, no worsening or blurred vision ENT: normal hearing, no trouble swallowing Respiratory: No cough, sputum, dyspnea at rest or on exertion Cardiovascular: NO chest pain, tightness or palpitations Abdomen: No pain, nausea, vomiting, diarrhea or constipation Musculoskeletal: (+) hip pain, NO calf pain, swelling Neurologic: No weakness, numbness/tingling, or balance problems Psychiatric: No anxiety or depression Skin: No rash or itch Physical Exam Physical Exam: PHYSICAL EXAM: General: awake, alert, no apparent distress Head: Normocephalic, atraumatic ENT: PERRLA, EOMI, no pharyngeal exudate, mucous membranes moist Neuro: AAO x 3, speech clear and appropriate, strength intact bilaterally 5/5, sensation intact and equal all extremities and dermatomes, no pronator drift Chest: equal rise and fall of the chest, no accessory muscle use, no heaves or thrills, Clear to auscultation, on room air, Cardiac: Regular rate and rhythm, telemetry reviewed- NSR, skin warm dry, cap refill <3 seconds, peripheral pulses +2 no JVD, no murmur, no edema GI: NABS x 4 quadrants, soft, nontender to palpation, no rebound, guarding or tenderness : Spontaneously voiding, no pain, no CVA tenderness, Extremities: Normal inspection, no peripheral edema or erythema, calfs nontender to palpation Psych: Normal mood and affect Skin: no rash or erythema Results & Data Results & Data Vital Signs (Past 12 Hours) Vital Signs Temp Pulse Resp BP Pulse Ox O2 Del Method 01/24/23 19:20 85 17 95 01/24/23 19:20 180/103 H 01/24/23 19:18 81 23 96 01/24/23 19:18 206/113 H 01/24/23 19:12 98 H 12 96 01/24/23 19:12 206/104 H 01/24/23 19:07 90 18 97 01/24/23 19:12 Room Air 01/24/23 19:12 100 Room Air 01/24/23 18:25 36.8 C 90 20 205/114 H 96 Room Air Laboratory Results Abnormal lab results 01/24/23 01/24/23 01/24/23 Range/Units 19:10 19:10 19:13 MPV 9.3 L (9.4-12.4) fL Neut # (Auto) 7.53 H (1.40-6.50) K/uL Activ Coag Time Kaolin (94-140) SECONDS POC Sodium 134 L (135-144) mmol/L Sodium 132 L (136-145) mmol/L POC Chloride 100 L (101-112) mmol/L POC Total CO2 22 L (24-31) mmol/L Glucose 358 H* (70-99(Fasting)) mg/dl POC Glucose (70-99) mg/dl POC Glucose (other) 362 H* (70-99) mg/dl ALT 57 H (7-52) U/L 01/24/23 01/24/23 01/24/23 Range/Units 20:01 20:11 21:09 MPV (9.4-12.4) fL Neut # (Auto) (1.40-6.50) K/uL Activ Coag Time Kaolin 341 H 275 H (94-140) SECONDS POC Sodium (135-144) mmol/L Sodium (136-145) mmol/L POC Chloride (101-112) mmol/L POC Total CO2 (24-31) mmol/L Glucose (70-99(Fasting)) mg/dl POC Glucose 271 H (70-99) mg/dl POC Glucose (other) (70-99) mg/dl ALT (7-52) U/L Medications Administered Discontinued Medications Aspirin (Aspirin Chew 324 Mg) 324 mg PO NOW STA Stop: 01/24/23 19:04 Last Admin: 01/24/23 19:07 Dose: 324 mg Documented By: NATHALIE Fentanyl Citrate (Fentanyl Citrate 100 Mcg/2 Ml Vial) Confirm Administered Dose 100 mcg .ROUTE .STK-MED ONE Stop: 01/24/23 19:23 Last Admin: 01/24/23 20:21 Dose: 25 mcg Documented By: ROSE Heparin Sodium (Porcine) (Heparin (Porcine) 1000 Unit/Ml 10 Ml (Fixed Wing Pilot Use Only)) Confirm Administered Dose 10,000 units .ROUTE .STK-MED ONE Stop: 01/24/23 19:23 Last Admin: 01/24/23 20:20 Dose: 6,000 units Documented By: ROSE Heparin Sodium/Sodium Chloride (Heparin In Nss Infusion 1000 Unit/500 Ml (2 U/Ml) Bag) Confirm Administered Dose 3,000 units IV .STK-MED ONE Stop: 01/24/23 19:23 Last Admin: 01/24/23 20:19 Dose: 3,000 units Documented By: CARMELO Hydralazine HCl (Hydralazine Hcl 20 Mg/Ml Vial) Confirm Administered Dose 20 mg .ROUTE .STK-MED ONE Stop: 01/24/23 19:38 Last Admin: 01/24/23 20:20 Dose: 10 mg Documented By: ROSE Labetalol HCl (Labetalol Hcl Iv 5 Mg/Ml 20ml) 10 mg IV NOW STA Stop: 01/24/23 19:10 Last Admin: 01/24/23 19:10 Dose: 10 mg Documented By: NATHALIE Co-signed By: BO Labetalol HCl (Labetalol Hcl Iv 5 Mg/Ml 20ml) Confirm Administered Dose 10 mg IV .STK-MED ONE Stop: 01/24/23 19:10 Last Admin: 01/24/23 19:12 Dose: Not Given Documented By: NATHALIE Metoprolol Tartrate (Metoprolol Tartrate 1 Mg/Ml Vial) Confirm Administered Dose 5 mg IV .STK-MED ONE Stop: 01/24/23 19:58 Last Admin: 01/24/23 20:20 Dose: 5 mg Documented By: ROSE Metoprolol Tartrate (Metoprolol Tartrate 1 Mg/Ml Vial) Confirm Administered Dose 5 mg IV .STK-MED ONE Stop: 01/24/23 20:05 Last Admin: 01/24/23 20:20 Dose: 5 mg Documented By: ROSE Midazolam HCl (Midazolam Hcl 1 Mg/Ml 2ml Vial) Confirm Administered Dose 2 mg .ROUTE .STK-MED ONE Stop: 01/24/23 19:23 Last Admin: 01/24/23 20:20 Dose: 1 mg Documented By: ROSE Nicardipine HCl (Nicardipine Hcl Inj 2.5 Mg/Ml 10 Ml Amp) Confirm Administered Dose 25 mg .ROUTE .STK-MED ONE Stop: 01/24/23 19:23 Last Admin: 01/24/23 20:19 Dose: 25 mg Documented By: CARMELO Nitroglycerin/Dextrose (Nitroglycerin/D5w 100mcg/Ml 20ml Syr) Confirm Administered Dose 2,000 mcg .ROUTE .STK-MED ONE Stop: 01/24/23 19:24 Last Admin: 01/24/23 20:19 Dose: 2,000 mcg Documented By: CARMELO Ticagrelor (Ticagrelor 90 Mg Tab) Confirm Administered Dose 180 mg .ROUTE .STK- MED ONE Stop: 01/24/23 20:22 Last Admin: 01/24/23 20:22 Dose: 180 mg Documented By: JMP ECG Additional Comments: Normal sinus rhythm ST elevation consider inferior injury or acute infarct ACUTE PR / STEMI Consider right ventricular involvement in acute inferior infarct Abnormal ECG When compared with ECG of 13-JUL-2018 11:58, ST now depressed in Lateral leads Coding Level of Care Code 12216 CRITICAL CARE 1ST 30-74M Diagnoses Obesity E66.9 HTN (hypertension) I10 STEMI (ST elevation myocardial infarction) I21.3 Stented coronary artery Z95.5 Elevated serum glucose R73.9
--- NOTE | 2023-01-24 20:57 | Cardiac Catheterization ---
ACC Data: Commissioning Specialist Cardiac Status Clinical evaluation leading to the procedure CAD Presenation: STEMI Anginal Classification: CCS IV Heart Failure: No Cardiogenic Shock within 24 Hours: No Cardiac Arrest within 24 Hours: No Imaging Studies Past 6 Months: No Stress Studies Past 6 Months: No STEMI OR Non-STEMI Symptom Onset Date: 01/24/23 Symptom Onset Time: 10:00 Thrombolytics: No Coronary Anatomy Dominant: Left Left Main (% Stenosis): Normal LAD (% Stenosis): Distal (Early 50%) D1 (% Stenosis): Normal D2 (% Stenosis): Proximal (50%) Circumflex (% Stenosis): Proximal (Mild) OM1 (% Stenosis): Proximal (30 to 40%) OM2 (% Stenosis): Normal L PL1 (% Stenosis): Normal (Mild luminal irregularities) L PDA (% Stenosis): Normal (Mild luminal irregularities) RCA (% Stenosis): Proximal (Diffuse mild then 70% before first branch) and Mid (100%) Ramus (% Stenosis): Normal Diagnostic Physicians Name: Lance Mckeon MD, PhD Closure Device Percutaneous Entry Location: Radial Closure Device: Radial Band Recommendations: Medical Therapy and/or Counseling and PCI without planned CABG PCI Indication: PCI for STEMI - Unstable First Noted: First EKG Lesion Segment Name: RCA proximal and mid Culprit Artery: Yes Stenosis Prior to Rx (%): 70%, 100% Chronic Total Occlusion: No Pre-Procedure LISSETH Flow: 0 Previously Treated Lesion: No Lesion Complexity: Non-High/Non-C Lesion Length (mm): Proximal 12 mm, mid 10 mm Thrombus Present: Yes Bifurcation Lesion: No Guidewire Across Lesion: Yes Intraprocedure Events Significant Disection: No Perforation: No Cardiac Cath Procedure Full Procedure Date January 24, 2023 Pre-Procedure Diagnosis Pre-Procedure Diagnosis: STEMI AUC Score AUC Score: 09 Post-Procedure Diagnosis Post-Procedure Diagnosis: Severe CAD and Successful PCI Procedure(s) Performed Procedure(s) Performed: Coronary Angiography and Drug Eluting Stent Photography Teacher Lance Mckeon MD, PhD Estimated Blood Loss Estimated Blood Loss: 10 ml Medication(s) Medication(s): Aspirin, Clopidogrel, Fentanyl, Heparin, Hydralazine, Lidocaine 1%, Metoprolol, Nicardipine, Nitroglycerin and Versed Summary of Findings Brief description: Patient was brought to the cardiac catheterization suite where he was shaved and prepped in a sterile fashion. Sedated using IV Versed and fentanyl. Soft tissues of the right wrist were anesthetized using 2 mL of 1% Xylocaine. The right radial artery was accessed using a modified Seldinger technique and a 6 [place]ian radial artery glide sheath was placed. Patient was provided anticoagulation with IV heparin and antispasmodics including nicardipine and nitroglycerin. All catheters were advanced and exchanged over a 0.035 J-tip wire. Left coronary angiography in orthogonal views with a 5 Bah[place]ian JL 3.5 diagnostic catheter. Right coronary angiography in orthogonal views with 6 [place]ian JR4 guide catheter. Note: Patient developed bradycardia during diagnostic cath. We next proceeded with PCI. ACT was checked and additional heparin was provided as needed to maintain therapeutic anticoagulation. A BMW universal guidewire was advanced through the guide catheter and under fluoroscopic was positioned and advanced distally in the RCA. [employer] angiography revealed return of flow into the RCA beyond the lesion. The lesion was then predilated using a 1.5 x 12 mm mini trek balloon inflated initially at 8 rebecca with secondary inflation up to 14 rebecca. The balloon was removed and house worker general angiography performed. Further predilatation was performed using a 2.0 x 12 mm mini trek balloon across the lesions up to 14 rebecca. This balloon was then removed and angiography was performed. Just beyond the large RV marginal branch a 2.25 x 12 mm Yousif drug-eluting stent was advanced and deployed with its proximal edge just beyond the ostium and across the lesion. This was deployed at 12 rebecca. Stent balloon was removed and house worker general angiography performed. A 2.25 x 15 mm [place] drug-eluting stent was then advanced and positioned across the proximal lesion with its distal edge just before the ostium of the RV marginal branch. The stent was then deployed at 14 rebecca. Stent balloon was removed. Supervisor [employer] angiography was performed. The BMW reversal guidewire was removed and final angiographic evaluation was performed in orthogonal views. Guide catheter was removed over the J-wire. Radial artery sheath was removed. Hemostasis was obtained using the TR band. Patient remained hemodynamically stable and asymptomatic. He was returned to the recovery area. This ended the case. Coronary angiography findings: LMT: Large caliber and relatively short. Trifurcates into LAD, ramus, and circumflex. Mild luminal irregularities. LAD: Large caliber and transapical. Proximal segment is free of disease. It gives a large caliber first diagonal which has tortuosity but no significant di sease. Mid LAD has mild diffuse disease. It gives a large caliber branching second diagonal which has proximal 50% stenosis. It becomes tortuous distally. Just after the ostium of the to the early distal diagonal has 50% stenosis. The vessel then becomes tortuous and provides smaller branches. There is mild luminal irregularities. Ramus: Small to medium caliber vessel without significant disease. LCx: This is large caliber and dominant. Travels in the AV groove. Proximal segment has mild luminal irregularities. It gives a large caliber multi branching OM1. This has proximal 30 to 40% stenosis. Its mid and distal segments are tortuous. The mid AV groove circumflex has mild luminal irregularities and is relatively short. It gives a medium to large caliber OM 2 which is tortuous but has no significant disease. The distal AV groove vessel remains large providing an atrial branch and then as it travels distally it becomes increasingly tortuous and bifurcates into a medium caliber posterolateral branch and a large caliber long PDA. These vessels have no more than mild luminal irregularities. RCA: This is a medium to large caliber nondominant vessel. Proximal segment has diffuse mild disease which worsens as it approaches the first RV marginal branch and appears to be 70% stenosed just before the RV marginal. After the RV marginal branch the mid RCA is patent for a few millimeters and then 100% occluded. There is some thrombus and LISSETH 0 flow. PCI findings: 0% residual stenosis post PCI No evidence of dissection or perforation post PCI LISSETH-3 flow post PCI Following PCI the RCA is determined to be nondominant. However, it is long and branching. Becomes increasingly tortuous and before its most distal aspect it is still around a 2.0 mm vessel. Summary: Acute inferior ST elevation PR secondary to occlusion of the apparent nondominant but relatively large caliber RCA. May include RV involvement. Successful PCI of the RCA with implantation of 2 drug-eluting stents. 1 in the early mid segment and 1 in the proximal segment. Dual antiplatelet therapy with aspirin and Brilinta was initiated and will continue for up to 1 to 2 years. Initiate guideline directed medical therapy for secondary prevention of coronary disease including; high intensity statin therapy, beta-nguyễn, LENNY inhibitor/ARB as tolerated. Obtain a 2D echocardiogram Hemodynamics Rest Ao:: 147/91 mmHg, mean 114 mmHg Final Ao: 122/61 mmHg, mean 63 mmHg LV: Not performed Recommendations Recommendations: Medical Therapy and/or Counseling and PCI without planned CABG Radiation Exposure (mGy) 2673 mGy, fluoroscopy time 11.2 minutes Contrast (mls) 220 mL Anesthesia 2 mg IV Versed, 50 mcg IV fentanyl Procedural Complication(s) None Disposition ICU I attest to the content of the Intraoperative Record and any orders documented therein. Any exceptions are noted below. [employer]G Card Cath Procedure Codes Cardiac Catheterization Procedure 1: Cardiovascular Cath Procedures: 14804 Coronaries Moderate Sedation Procedure 1: Sedation/Anesthesia: 94805 Mod Sedation by the same physician;Init15 Min Child Age 5 & Up (Initial 15 minutes (total 38 minutes)) Procedure 2: Sedation/Anesthesia: 09155 Mod Sedation by the same physician; Ea [id number] Minutes (Additional 23 minutes (total 38 minutes)) Stenting Procedure 1: Cardiovascular Stent Procedures: 37171 Perc transluminal revascularization of acute sub/total occl, aMI (RCA) PG Care Time/CCT Total # of Minutes Spent Total Time Spent with Patient: Total time spent is greater than 50% in coordination of care (as documented) at patient's floor/unit and/or counseling patient:
[2023-01-24] MEDS ORDERED: ICU Protocol for HYPERglycemia SCH ×2 (21:00→21:03)
--- NOTE | 2023-01-24 21:27 | Pre Anesthesia Assessment ---
Date of Service January 24, 2023 Pre Sedation Assessment Vital Signs Temp Pulse Pulse Resp BP BP Pulse Ox 01/24/23 21:17 36.8 C 82 18 165/91 H 96 01/24/23 21:00 85 19 97 01/24/23 21:00 165/96 H 01/24/23 20:48 85 19 96 01/24/23 20:48 160/80 H 01/24/23 20:45 85 18 96 01/24/23 20:38 83 20 94 01/24/23 20:38 156/87 H 01/24/23 20:37 87 28 H 95 01/24/23 19:20 85 17 95 01/24/23 19:20 180/103 H 01/24/23 19:18 81 23 96 01/24/23 19:18 206/113 H 01/24/23 19:12 98 H 12 96 01/24/23 19:12 206/104 H 01/24/23 19:07 90 18 97 01/24/23 19:12 01/24/23 19:12 100 01/24/23 18:25 36.8 C 90 20 205/114 H 96 O2 Del Method 01/24/23 21:17 Room Air 01/24/23 21:00 01/24/23 21:00 01/24/23 20:48 01/24/23 20:48 01/24/23 20:45 01/24/23 20:38 01/24/23 20:38 01/24/23 20:37 01/24/23 19:20 01/24/23 19:20 01/24/23 19:18 01/24/23 19:18 01/24/23 19:12 01/24/23 19:12 01/24/23 19:07 01/24/23 19:12 Room Air 01/24/23 19:12 Room Air 01/24/23 18:25 Room Air Cardiovascular RRR, no murmur, no edema Respiratory normal respiratory effort, lungs clear to auscultation Pre-Sedation Airway Assessment Smoking Status: Never smoker Mallampati 2 ASA class IV Notes The planned sedation has been discussed with the patient. Informed Consent was obtained. I have identified the patient, determined the appropriateness of sedation and have assessed the patient immediately prior to the procedure. All medicine(s) and interventions are by my order. [facility] [place] Procedure Codes (Charges) Indication for Procedure Indication for procedure: STEMI Sedation/Anesthesia Procedure 1: Sedation/Anesthesia: 39453 Mod Sedation by the same physician;Init15 Min Child Age 5 & Up (Initial 15 min) Total Sedation Time (minutes): 38 Procedure 2: Sedation/Anesthesia: 86562 Mod Sedation by the same physician; Ea [id number] Minutes (Additional 23 min) Total Sedation Time (minutes): 38
--- NOTE | 2023-01-24 21:28 | Post Anesthesia Assessment ---
Date of Service January 24, 2023 Post Sedation Assessment Vital Signs Temp Pulse Pulse Resp BP BP Pulse Ox 01/24/23 21:15 82 20 95 01/24/23 21:15 36.8 C 165/91 H 01/24/23 21:17 36.8 C 82 18 165/91 H 96 01/24/23 21:00 85 19 97 01/24/23 21:00 165/96 H 01/24/23 20:48 85 19 96 01/24/23 20:48 160/80 H 01/24/23 20:45 85 18 96 01/24/23 20:38 83 20 94 01/24/23 20:38 156/87 H 01/24/23 20:37 87 28 H 95 01/24/23 19:20 85 17 95 01/24/23 19:20 180/103 H 01/24/23 19:18 81 23 96 01/24/23 19:18 206/113 H 01/24/23 19:12 98 H 12 96 01/24/23 19:12 206/104 H 01/24/23 19:07 90 18 97 01/24/23 19:12 01/24/23 19:12 100 01/24/23 18:25 36.8 C 90 20 205/114 H 96 O2 Del Method 01/24/23 21:15 01/24/23 21:15 01/24/23 21:17 Room Air 01/24/23 21:00 01/24/23 21:00 01/24/23 20:48 01/24/23 20:48 01/24/23 20:45 01/24/23 20:38 01/24/23 20:38 01/24/23 20:37 01/24/23 19:20 01/24/23 19:20 01/24/23 19:18 01/24/23 19:18 01/24/23 19:12 01/24/23 19:12 01/24/23 19:07 01/24/23 19:12 Room Air 01/24/23 19:12 Room Air 01/24/23 18:25 Room Air Recovery Score Activity: Moves 4 extremities Respiration: Deep Breath/Cough Circulation: +/-20% PreAnes Value Consciousness: Fully Awake Oxygen Saturation: > 92% On Room Air Discharge Sedation Level of Care: Fast Track Phase II Post Sedation Plan On clinical assessment, the patient appears to have tolerated the sedation without complications. Patient is recovering as anticipated. Patient will continue to be monitored by nursing and may be discharged when sedation discharge criteria are met per below protocol. Upon Completions of procedure up to 15 minutes continue every 5 minute vital signs and the P.A.R. score; then discharge to a Phase I or Fast Track to Phase II per the following guidelines: * Discharge Patient to appropriate Phase II area if PAR is 8 or greater or return to pre- procedure baseline. The post - procedure orders will be as directed. * If PAR score is less than 8 or not return to pre-procedure baseline then patient will follow Phase I monitoring till PAR is reached for Phase II. The Phase I may be done in procedure room or may call to secure a Phase I area. * If naloxone or flumazenil are used for reversal, hold in Phase I for continued monitoring from when last reversal dose was given for a minimum of 60 minutes or longer pending the nurse and/or physician discretion of patient condition before discharge to Phase II. Please call the Sedation Physician to re-evaluate and complete post-note for discharge to Phase II area. Do NOT discharge from procedure sedation or Phase 1 until post- sedation evaluation note is complete by procedure /sedation MD Sedation Discharge Instructions to be given to the patient at discharge to home. [facility] Procedure Codes (Charges) Indication for Procedure Indication for procedure: STEMI
[2023-01-24] MEDS: METOPROLOL TARTRATE 25 MG TAB PO SCH (21:38)
--- NOTE | 2023-01-24 21:40 | Cardiology Consultation ---
Date of Consultation January 24, 2023 Assessment & Plan (1) STEMI (ST elevation myocardial infarction): Status post PCI with implantation of 2 drug-eluting stents. He will remain on dual antiplatelet therapy with aspirin 81 mg daily and Brilinta 90 mg p.o. twice daily to complete 1 to 2 years therapy. Also initiating guideline directed medical therapy for secondary prevention including; aspirin, beta-nguyễn, high intensity statin therapy, and LENNY inhibitor/ARB as tolerated. We will obtain an echocardiogram to evaluate LVEF, valvular function, and look at the right ventricle since this may have been involved in his MS. We will also look for additional risk factors including diabetes and thyroid disease. (2) HTN (hypertension): Blood pressure is extremely elevated. Beginning beta-nguyễn, LENNY inhibitor, and we will titrate as needed to achieve target systolic blood pressure. Would try to avoid nitroglycerin use as we do not know his RV involvement. Having said that, his blood pressure has been very elevated and he tolerated intra- arterial nitroglycerin provided in the Top Lift Compressor. (3) Atherogenic dyslipidemia: Patient is considered high risk. High intensity statin therapy with a atorvastatin 40 mg daily is initiated. We need to check a fasting lipid panel to obtain baseline. Plan Patient will be in the ICU for 24 hours. Then, likely transfer to stepdown with total anticipated hospitalization time of 48 hours assuming no complications or new problems. History of Present Illness Reason for Consultation: ST elevation MS Attending Physician: Jessica Hendrickson, History of Present Illness 62-year-old gentleman who developed sudden onset chest tightness, indigestion, after he was at the dentist at around 10:00 this morning. He went home but just did not feel well. He felt the indigestion was secondary to the amoxicillin which had been used at the dentist. However, he continued to worsen through the day and his chest pain and tightness became 5-6 out of 10. He therefore decided to seek medical attention and drove himself with his to the emergency department. There, he had subtle evidence of acute inferior ST elevation MS. The emergency physician called a "heart alert" and I came to see the patient. Patient's blood pressure had been well over 200 systolics on arrival in emergency medicine provided him with IV labetalol. His blood pressure then dropped to the 180s systolic and he stated that he had very little chest pain. A second EKG was performed and no longer demonstrated any ST elevations meeting criteria for AMI. However, there were still subtle elevations and some subtle reciprocal changes. Patient had relatively large Q waves in the inferior leads. After discussion with the patient we decided to proceed with definitive evaluation by coronary angiography. Patient tells me he does not see a physician regularly. Typically only sees his family medicine doctor if he needs treatment for an acute issue such as pain or illness. To his knowledge he has no known chronic medical problems. Patient was taken emergently to the cardiac catheterization suite where he underwent diagnostic coronary angiography. He also had PCI of the nondominant RCA with good angiographic results and complete resolution of his chest pain with samaritan of LISSETH-3 flow. He is now admitted to the ICU. Allergies Allergy/AdvReac Type Severity Reaction Status Date / Time No Known Allergies Allergy Verified 12/07/18 12:16 Home Medications Medication Instructions Recorded Confirmed Type loperamide 2 mg tablet (Imodium 1 tab PO QAM 07/07/18 12/07/18 History A-D) meloxicam 15 mg tablet (Mobic) 15 mg PO QAM 07/07/18 12/07/18 History multivitamin 1 tab PO DAILY 07/07/18 12/07/18 History omega 4-xmt-yje-fish oil 1,000 mg 2 cap PO QAM 07/07/18 12/07/18 History (120 mg-180 mg) capsule (Fish Oil) vitamins A,C,and E-selenium 1 cap PO DAILY 07/07/18 12/07/18 History capsule (Super Antioxidant capsule) naproxen sodium 220 mg tablet 440 mg PO DAILY 12/07/18 12/07/18 History (Aleve) Patient History Medical History (Updated 01/24/23 @ 21:35 by Lance Mckeon MD, PhD) Chronic diarrhea Degenerative disc disease, lumbar Family history of diabetes mellitus FATHER-BORDERLINE DM Hyperlipidemia BORDERLINE Osteoarthritis Peripheral neuropathy 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 SIDE History of discectomy LUMBAR History of tonsillectomy History of tooth extraction History of total hip arthroplasty LEFT Family History Father Family history of diabetes mellitus BORDERLINE Social History Smoking Status: Never smoker Second Hand Exposure: No; Hx Alcohol Use: Yes Alcohol type: other Hx Substance Use: No Preferred Language: Ghanaian Communication Ability: Effective Digital Learning Platforms Manager Required: No Beliefs That Will Affect Care: None Current Living Situation: Spouse Feels Safe at Home: Yes Assistive Devices: Glasses Review of Systems Review of Systems: Negative except as per HPI Physical Exam Constitutional: Obese. Mild distress. Eyes: PERRL, conjunctivae normal, anicteric sclerae ENMT: external ear and nose normal, oropharynx normal Neck: Thick. No JVD or bruits appreciated Respiratory: normal respiratory effort, lungs clear to auscultation Cardiovascular: Regular rate and rhythm. S4 gallop. Do not appreciate any rubs or murmurs. Musculoskeletal: no cyanosis or clubbing, extremities motor strength 5/5 Neurologic: Cognition is intact. Speech is fluent. There is no focal motor deficits. Moves all 4 extremities voluntarily. No tremor. Psychiatric: A+Ox3, euthymic affect Results & Data Vital Signs (Past 12 Hours) Vital Signs Temp Pulse Pulse Resp BP BP Pulse Ox 01/24/23 21:15 82 20 95 01/24/23 21:15 36.8 C 165/91 H 01/24/23 21:17 36.8 C 82 18 165/91 H 96 01/24/23 21:00 85 19 97 01/24/23 21:00 165/96 H 01/24/23 20:48 85 19 96 01/24/23 20:48 160/80 H 01/24/23 20:45 85 18 96 01/24/23 20:38 83 20 94 01/24/23 20:38 156/87 H 01/24/23 20:37 87 28 H 95 01/24/23 19:20 85 17 95 01/24/23 19:20 180/103 H 01/24/23 19:18 81 23 96 01/24/23 19:18 206/113 H 01/24/23 19:12 98 H 12 96 01/24/23 19:12 206/104 H 01/24/23 19:07 90 18 97 01/24/23 19:12 01/24/23 19:12 100 01/24/23 18:25 36.8 C 90 20 205/114 H 96 O2 Del Method 01/24/23 21:15 01/24/23 21:15 01/24/23 21:17 Room Air 01/24/23 21:00 01/24/23 21:00 01/24/23 20:48 01/24/23 20:48 01/24/23 20:45 01/24/23 20:38 01/24/23 20:38 01/24/23 20:37 01/24/23 19:20 01/24/23 19:20 01/24/23 19:18 01/24/23 19:18 01/24/23 19:12 01/24/23 19:12 01/24/23 19:07 01/24/23 19:12 Room Air 01/24/23 19:12 Room Air 01/24/23 18:25 Room Air PG Care Time/CCT Total # of Minutes Spent Total Time Spent with Patient: Total time spent is greater than 50% in coordination of care (as documented) at patient's floor/unit and/or counseling patient: Critical Care Time: Yes Total Critical Care Time: 75 Total time spent in initial evaluation, examination, discussion with the patient and his family, review of records, formulation and implementation of a plan of care and discussion with the care team was 75 minutes of critical care. This includes time to document all of the above. This is exclusive of the time spent for the procedure. [place] [address] CRITICAL CARE 1ST 30-74M Patient Type New Diagnoses STEMI (ST elevation myocardial infarction) I21.3 HTN (hypertension) I10 Atherogenic dyslipidemia E78.5 Additional Codes Critical Care Time - Critical Care Time: Yes ([id number])
[2023-01-24 21:54] LABS: Basophils # (auto) 0.05 K/uL (0-0.2); Basophils % (auto) 0.5 %; Eosinophils # (auto) 0.07 K/uL (0-0.50); Eosinophils % (auto) 0.7 %; Hematocrit (blood only) 44.7 % (42.0-52.0); Hemoglobin 16.1 g/dl (14.0-18.0); Immature Granulocytes # (auto) 0.03 K/uL (0.01-0.20); Immature Granulocytes % (auto) 0.3 %; Lymphocytes # (auto) 2.03 K/uL (1.2-3.4); Lymphocytes % (auto) 21.3 %; Mean Corpuscular Hemoglobin 31.9 pg (25.0-34.0); Mean Corpuscular Volume 88.5 fL (80.0-100.0); Mean Platelet Volume 9.4 fL (9.4-12.4); Monocytes # (auto) 0.49 K/uL (0.11-0.59); Monocytes % (auto) 5.1 %; Neutrophils # (auto) 6.87 K/uL (1.40-6.50); Neutrophils % (auto) 72.1 %; Platelet Count 330 K/uL (130-400); RDW Coefficient of Variation 12.3 % (11.5-14.5); RDW Standard Deviation 39.6 fL (36.4-46.3); Red Blood Count 5.05 M/uL (4.70-6.10); White Blood Count 9.54 K/ul (4.8-10.8)
[2023-01-24] MEDS ORDERED: GLUCOSE 40% GEL 15 GM TUBE PO PRN (22:09)
[2023-01-24] MEDS ORDERED: DEXTROSE 50% 50 ML SYRINGE IV PRN (22:09)
[2023-01-24] MEDS ORDERED: GLUCAGON FOR INJ 1 MG VIAL SQ PRN (22:09)
[2023-01-24] MEDS ORDERED: CARBOHYDRATES FOR HYPOGLYCEMIA PO PRN (22:09)
[2023-01-24] MEDS ORDERED: GLUCOSE 10 TAB/TUBE PO PRN (22:09)
[2023-01-24] MEDS ORDERED: hydrALAZINE HCL 20 MG/ML VIAL IV PRN (22:14)
[2023-01-24 22:27] LABS: Chol HDL Ratio 5.6 (0-5); Cholesterol 247 mg/dl (0-200); HDL Cholesterol 44 mg/dl; LDL Cholesterol Direct 155 mg/dl; Triglycerides 278 mg/dl (0-150); VLDL Cholesterol 56 mg/dl (0-30)
[2023-01-24] MEDS: INSULIN ASPART PER UNIT CHARGE SC SCH (22:45)
[2023-01-24 23:04] LABS: Phosphorus 3.2 mg/dl (2.5-4.9)
[2023-01-24 23:16] LABS: Troponin I High Sensitivity 497.5 pg/ml (0-20)
[2023-01-25 05:21] LABS: Hematocrit (blood only) 43.6 % (42.0-52.0); Hemoglobin 15.6 g/dl (14.0-18.0); Mean Corpuscular Hgb Conc 35.8 g/dL (32.0-36.0); Mean Corpuscular Volume 89.5 fL (80.0-100.0); Mean Platelet Volume 9.3 fL (9.4-12.4); Platelet Count 322 K/uL (130-400); RDW Coefficient of Variation 12.3 % (11.5-14.5); RDW Standard Deviation 40.4 fL (36.4-46.3); Red Blood Count 4.87 M/uL (4.70-6.10); White Blood Count 8.68 K/ul (4.8-10.8)
[2023-01-25 05:37] LABS: BUN Creatinine Ratio 12.3 (10-20); Calcium 9.3 mg/dl (8.5-10.1); Creatinine Clr Calc Pharmacy 119.9 ml/min; Est GFR (African American) 109.6 ml/min; Est GFR (Non-African American) 94.6 ml/min; Magnesium 1.9 mg/dl (1.7-2.4); Phosphorus 3.4 mg/dl (2.5-4.9); Potassium 3.7 mmol/L (3.5-5.1)
[2023-01-25] MEDS ORDERED: MAGNESIUM OXIDE 400 MG TAB PO SCH (06:30)
[2023-01-25] MEDS: POTASSIUM CHLORIDE CRTAB 20 MEQ TABCR PO SCH ×2 (06:33→10:34)
[2023-01-25] MEDS: ICU ELECTROLYTE REPLACEMENT PROTOCOL SCH ×2 (06:40→17:16)
[2023-01-25] MEDS: MAGNESIUM SULFATE / D5W 1 GM/100 ML BAG IV SCH ×2 (06:40→08:26)
--- NOTE | 2023-01-25 06:49 | XRay Report ---
XR chest 1V portable HISTORY: 62 years-old Male Chest pain acute chest pain COMPARISON: 07/13/2018 TECHNIQUE: AP view of the chest FINDINGS: Cardiomediastinal and hilar silhouettes are within normal limits. No pneumothorax, pleural effusion, airspace consolidation or overt pulmonary edema. Degenerative changes of the shoulders and spine. IMPRESSION: No acute process. ACT 112: Negative or not required by law. The above report was generated using voice recognition software. It may contain grammatical, syntax o r spelling errors. Electronically signed by: Elton Gaston M.D. 01/25/2023 6:48 AM
[2023-01-25] MEDS: ASPIRIN 81 MG ECTAB PO SCH (07:33)
[2023-01-25] MEDS: INSULIN ASPART PER UNIT CHARGE SC SCH ×4 (07:33→21:34)
[2023-01-25] MEDS: TICAGRELOR 90 MG TAB PO SCH ×2 (07:34→21:37)
[2023-01-25] MEDS: METOPROLOL TARTRATE 25 MG TAB PO SCH ×2 (07:35→21:36)
[2023-01-25] MEDS: ATORVASTATIN 40 MG TAB PO SCH (07:35)
[2023-01-25] MEDS: lisinopril 5 MG TAB PO SCH (07:35)
[2023-01-25 07:52] LABS: Estimated Average Glucose 272 mg/dl; Hemoglobin A1C 11.1 % (4.5-5.6)
--- NOTE | 2023-01-25 09:34 | Critical Care Progress Note ---
Date of Service January 25, 2023 Assessment & Plan (1) Obesity: (2) HTN (hypertension): (3) STEMI (ST elevation myocardial infarction): (4) Stented coronary artery: (5) Elevated serum glucose: Plan Reason Critically Ill: 62 YOM with no known medical problems, last seen physician in 2018 for pre-op screening. Patient presents today for fatigue and left arm pain, diagnosed with STEMI and taken emergently to the microbiological laboratory technician. He received 2 BIANCA stents tot he RCA. To the ICU for post procedural monitoring. Neuro - NO acute needs - CAM ICU: Negative Cardiac - STEMI, Elevated Blood pressure without the diagnosis of HTN - Patient with Inferior wall STEMI- s/p 2 BIANCA - ECHO indicating probable RV infarction, otherwise normal study, EF 55-60% - Long-term goal to ID and manage patient's comorbidities, strongly encouraged close PCP follow up - Current initial therapy by Cardiology- BB, ASA, Brilinta, Statin - HGB A1c 11.1, indicates need for DM therapy, insulin therapy inpatient, DM education inpatient, consider trial of oral agents outpatient, close PCP follow up - Lipid Panel: Cholesterol 247 H, TG 278, LDL 155, HDL 44 (ASCVD Risk = 25%, high intensity statin recommended) - Troponin downtrending - For his elevated BP PRN hydralazine Respiratory - No acute needs - Patient with large neck circumference as well as obesity - STOP BANG- 5 - recommend ROSALBA screening as outpatient to decrease further CV events - Recommending close follow up with PCP GI - NO acute needs - GI PPx ordered, Pantoprazole 40 mg PO daily - Home Loperamide ordered for complaint of diarrhea RENAL/LYTES - No acute needs - ICU electrolyte protocol - IVF discontinued - No acute needs - Urine output 705 mL, net positive 1940 mL ENDO - Elevated serum glucose without the diagnosis of DM, Metabolic Syndrome - TSH wnl - Lipid Panel above, indicates need for statin - HGBA1C elevated, indicates need for DM management, carb consistent diet ordered - ICU hyper/hypoglycemic protocol HEME - NO acute needs - Antiplatelet medication initiated as above ID - No clinical suspicion for infectious etiology LINES/IV ACCESS - PIV - Continue use of these lines DVT PROPHYLAXIS - SCDS, ASA, ambulation DISPO: Stable to downgrade from ICU, discharge dependent on primary team. Patient will require close follow up with PCP as outpatient. Thank you for allowing us to participate in the care of this patient. Please refer to my attending physician's documentation for any further recommendations. Admission and Anticipated Discharge Date Admission Date: January 24, 2023 Supervising Physician Co-Signing Physician Notes was the resident-physician during care of patient. I separately evaluated patient for foster portions of the history and the exam. I was present during the critical portion of medical decision making, and I discussed the case with the resident. I generally agree with the findings and plan except for any additions/exceptions noted. 62-year-old male who came in with chest pain, went to cardiac cath and had 2 stents placed placed in the RCA Patient was in the ICU for further care Today the time of examination patient says that he is doing well. Denies any chest pain, no chest tightness, no dizziness, no palpitation. Fair appetite. No nausea or vomiting He denies any history of blood pressure. No history of known diabetes. Constitutional: No acute distress HEENT: EOMI, PERRLA Respiratory system: Good air entry bilaterally, no wheeze, no rhonchi, no crackles CVS: S1-S2 positive, no murmurs or gallops Abdomen: Soft, nontender, nondistended, positive bowel sounds x4, reducible umbilical hernia Extremities: +2 pulses bilaterally radialis/ dorsalis pedis, no cyanosis, no edema Neuro: Awake alert oriented x3 Psych: Normal mood and affect G/U: No Berman --Prophylaxis VTE: None GI: Pantoprazole Lines: Peripheral Diet: Diabetic Plan: In/out: +380, urine output 700 mL Patient's HbA1c was 11. This is new onset diabetes. Diabetic education has been ordered Patient also has elevated blood pressure. He has been started on beta-nguyễn, ticagrelor, aspirin, atorvastatin as well as lisinopril. Given that the patient is taking pain pills on a regular basis. Pantoprazole should be added as there is increased risk of bleeding being on DAPT Hemodynamically stable to be downgraded from the ICU Potassium being replaced Please note the above document was generated using voice recognition software. It may contain grammatical, syntax or spelling errors.Any formal questions or concerns about the content, text or information contained within the body of this dictation should be directly addressed to the provider for clarification. Alexander Bella is a 62 M with no reported PMH, only taking supplements at home. Patient was admitted for STEMI and emergently taken to the microbiological laboratory technician upon arrival. Patient is s/p 2 BIANCA to the RCA, he has since been managed in the ICU. Patient endorses feeling 'better than ever' today. He denies any chest pain, dyspnea, abdominal pain, headaches, LE swelling or pain, or bowel/bladder changes. He notes that he is strongly interested in going home. Patient denies any history of hypertension, hyperlipidemia, or diabetes mellitus. He denies any alcohol, tobacco, or illicit drug use. Patient notes that he does not consistently follow with his PCP and believes his last visit was sometime in [id number]. Medications: Reviewed Allergies: Reviewed. Review of Systems Review of Systems: As per HPI Physical Exam Physical Exam: Gen: Awake, alert, NAD Head: NCAT Neuro: AO x3, speech clear and appropriate CV: RRR, normal S1/S2, no MRG Resp: Non-labored, no wheezing/rhonchi/rales, CTAB, no supplemental O2 Abd: + Bowel sounds, soft, no TTP, no rebound/guarding, 2.5 cm periumbilical hernia (reducible) Ext: 2+ distal pulses bilaterally, no LE edema or erythema Psych: Normal mood and affect Skin: no rash or erythema Results & Data Results & Data Vital Signs (Past 12 Hours) Vital Signs Temp Pulse Pulse Resp BP BP Pulse Ox 01/25/23 08:47 119/74 01/25/23 08:47 77 19 96 01/25/23 08:34 79 21 95 01/25/23 08:01 118/100 01/25/23 08:01 92 H 22 97 01/25/23 08:00 85 18 96 01/25/23 07:30 89 20 95 01/25/23 07:30 158/92 H 01/25/23 07:27 163/97 H 01/25/23 07:27 83 29 H 94 01/25/23 07:15 148/95 H 01/25/23 07:15 79 17 95 01/25/23 07:00 84 20 96 01/25/23 07:00 163/90 H 01/25/23 06:45 79 16 94 01/25/23 08:00 01/25/23 08:00 01/25/23 08:00 77 01/25/23 07:00 36.7 C 82 20 163/90 H 96 01/25/23 04:00 77 20 95 01/25/23 04:00 36.6 C 149/89 H 01/25/23 03:46 77 17 97 01/25/23 03:46 155/80 H 01/25/23 03:45 75 18 95 01/25/23 03:30 72 20 94 01/25/23 03:30 115/67 01/25/23 03:15 71 14 94 01/25/23 03:15 131/59 L 01/25/23 03:00 86 26 H 96 01/25/23 03:00 155/81 H 01/25/23 02:45 72 6 L 94 01/25/23 02:45 123/71 01/25/23 02:32 78 21 95 01/25/23 02:32 147/81 H 01/25/23 02:30 73 17 93 01/25/23 02:15 75 19 95 01/25/23 02:15 154/75 H 01/25/23 02:00 75 12 95 01/25/23 02:00 121/62 01/25/23 01:45 75 14 95 01/25/23 01:45 124/61 01/25/23 01:30 72 22 95 01/25/23 01:30 116/71 01/25/23 01:15 77 20 95 01/25/23 01:15 135/87 01/25/23 01:00 75 18 94 01/25/23 01:00 147/86 H 01/25/23 00:45 36.6 C 76 20 95 01/25/23 00:45 149/80 H 01/25/23 00:30 73 19 94 01/25/23 00:30 122/83 01/25/23 00:15 70 16 94 01/25/23 00:15 145/78 H 01/25/23 00:00 70 21 94 01/25/23 00:00 134/84 01/24/23 23:45 69 17 95 01/24/23 23:45 146/83 H 01/24/23 23:30 70 19 95 01/24/23 23:30 146/85 H 01/24/23 23:15 71 16 96 01/24/23 23:15 120/86 01/24/23 23:00 67 16 96 01/24/23 23:00 151/81 H 01/25/23 00:00 71 01/24/23 22:45 73 16 96 01/24/23 22:45 148/85 H 01/24/23 22:30 70 15 97 01/24/23 22:30 146/84 H 01/24/23 22:15 71 16 97 01/24/23 22:15 168/84 H 01/24/23 22:00 71 12 96 01/24/23 22:00 157/82 H 01/24/23 21:45 78 25 H 96 01/24/23 21:45 181/106 H 01/24/23 22:18 100 H 01/24/23 21:56 Pulse Ox O2 Del Method O2 Del Method 01/25/23 08:47 01/25/23 08:47 01/25/23 08:34 01/25/23 08:01 01/25/23 08:01 01/25/23 08:00 01/25/23 07:30 01/25/23 07:30 01/25/23 07:27 01/25/23 07:27 01/25/23 07:15 01/25/23 07:15 01/25/23 07:00 01/25/23 07:00 01/25/23 06:45 01/25/23 08:00 Room Air 01/25/23 08:00 96 Room Air 01/25/23 08:00 01/25/23 07:00 Room Air 01/25/23 04:00 01/25/23 04:00 01/25/23 03:46 01/25/23 03:46 01/25/23 03:45 01/25/23 03:30 01/25/23 03:30 01/25/23 03:15 01/25/23 03:15 01/25/23 03:00 01/25/23 03:00 01/25/23 02:45 01/25/23 02:45 01/25/23 02:32 01/25/23 02:32 01/25/23 02:30 01/25/23 02:15 01/25/23 02:15 01/25/23 02:00 01/25/23 02:00 01/25/23 01:45 01/25/23 01:45 01/25/23 01:30 01/25/23 01:30 01/25/23 01:15 01/25/23 01:15 01/25/23 01:00 01/25/23 01:00 01/25/23 00:45 01/25/23 00:45 01/25/23 00:30 01/25/23 00:30 01/25/23 00:15 01/25/23 00:15 01/25/23 00:00 01/25/23 00:00 01/24/23 23:45 01/24/23 23:45 01/24/23 23:30 01/24/23 23:30 01/24/23 23:15 01/24/23 23:15 01/24/23 23:00 01/24/23 23:00 01/25/23 00:00 01/24/23 22:45 01/24/23 22:45 01/24/23 22:30 01/24/23 22:30 01/24/23 22:15 01/24/23 22:15 01/24/23 22:00 01/24/23 22:00 01/24/23 21:45 01/24/23 21:45 01/24/23 22:18 01/24/23 21:56 96 Room Air Laboratory Results 01/25/23 04:21 01/25/23 04:21 Resident Activity Tracking Resident Involvement: Resident Care Provided Care Provided: Adult Hospital Medicine
--- NOTE | 2023-01-25 09:41 | XCELERA ---
[id number]
[2023-01-25] MEDS ORDERED: LOPERAMIDE HCL 2 MG CAP PO PRN (09:48)
--- NOTE | 2023-01-25 10:08 | Cardiology Progress Note ---
Date of Service January 25, 2023 Assessment & Plan (1) STEMI (ST elevation myocardial infarction): Plan: The echocardiogram was reviewed. Findings most consistent with small RV infarct. Preserved LV function, no significant valvular pathology, and only grade 1 diastolic dysfunction. Patient received 2 drug-eluting stents to the RCA. He will remain on dual antiplatelet therapy with aspirin 81 mg daily and Brilinta 90 mg p.o. twice daily. Dual antiplatelet therapy is recommended for 1 to 2 years post PCI. At least the first 30 days should continue with Brilinta if tolerated. Change to Plavix after that would be reasonable. We will obtain a card from the manufacture which will allow the first 30 days of Brilinta for free. His heart rate and blood pressure are now at target. He will therefore continue with his guideline directed medical therapy including metoprolol tartrate 25 mg p.o. twice daily, lisinopril 5 mg daily, and a atorvastatin 40 mg daily. I discussed with him the importance of cardiac rehab after he is discharged and he is interested. At this time, he is appropriate for transfer to stepdown/PCU. (2) HTN (hypertension): Plan: Blood pressure now well controlled. Continue metoprolol tartrate 25 mg p.o. twice daily and lisinopril 5 mg daily. Avoid long-acting nitrates and sublingual nitroglycerin at this time. (3) Atherogenic dyslipidemia: Plan: Patient is high risk (diabetes and coronary disease). High intensity therapy with a atorvastatin 40 mg daily has been initiated. His LDL was 155 mg/dL. This makes his target LDL 77 mg/dL or less. We will reassess his lipid panel after 3 months therapy. Plan Disposition: Transfer to PCU. Assuming no complications then he will likely be appropriate for discharge tomorrow. Admission and Anticipated Discharge Date Admission Date: January 24, 2023 Subjective Patient did well overnight. He denies any anginal chest pain, shortness of breath, racing heartbeat, palpitations, orthopnea, PND, or edema. No pain at the right radial access site. Tolerating medications. He states that he feels better than prior to his event. Review of Systems Review of Systems: Negative except as per HPI Physical Exam Constitutional: WD/WN, vitals as above Neck: No JVD Respiratory: Clear to auscultation bilaterally. No wheezing, rhonchi, or rales. Good air movement. Cardiovascular: Regular rate and rhythm. S4 gallop. No rubs or murmurs appreciated. No edema. Musculoskeletal: no cyanosis or clubbing, extremities motor strength 5/5 Neurologic: Cognition is intact. Speech is fluent. No focal motor deficits. No tremor. Psychiatric: A+Ox3, euthymic affect Results & Data Vital Signs (Past 12 Hours) Vital Signs Temp Pulse Pulse Resp BP BP Pulse Ox 01/25/23 08:47 119/74 01/25/23 08:47 77 19 96 01/25/23 08:34 79 21 95 01/25/23 08:01 118/100 01/25/23 08:01 92 H 22 97 01/25/23 08:00 85 18 96 01/25/23 07:30 89 20 95 01/25/23 07:30 158/92 H 01/25/23 07:27 163/97 H 01/25/23 07:27 83 29 H 94 01/25/23 07:15 148/95 H 01/25/23 07:15 79 17 95 01/25/23 07:00 84 20 96 01/25/23 07:00 163/90 H 01/25/23 06:45 79 16 94 01/25/23 08:00 01/25/23 08:00 01/25/23 08:00 77 01/25/23 07:00 36.7 C 82 20 163/90 H 96 01/25/23 04:00 77 20 95 01/25/23 04:00 36.6 C 149/89 H 01/25/23 03:46 77 17 97 01/25/23 03:46 155/80 H 01/25/23 03:45 75 18 95 01/25/23 03:30 72 20 94 01/25/23 03:30 115/67 01/25/23 03:15 71 14 94 01/25/23 03:15 131/59 L 01/25/23 03:00 86 26 H 96 01/25/23 03:00 155/81 H 01/25/23 02:45 72 6 L 94 01/25/23 02:45 123/71 01/25/23 02:32 78 21 95 01/25/23 02:32 147/81 H 01/25/23 02:30 73 17 93 01/25/23 02:15 75 19 95 03/21/23 02:15 154/75 H 01/25/23 02:00 75 12 95 01/25/23 02:00 121/62 01/25/23 01:45 75 14 95 01/25/23 01:45 124/61 01/25/23 01:30 72 22 95 01/25/23 01:30 116/71 01/25/23 01:15 77 20 95 01/25/23 01:15 135/87 01/25/23 01:00 75 18 94 01/25/23 01:00 147/86 H 01/25/23 00:45 36.6 C 76 20 95 01/25/23 00:45 149/80 H 01/25/23 00:30 73 19 94 01/25/23 00:30 122/83 01/25/23 00:15 70 16 94 01/25/23 00:15 145/78 H 01/25/23 00:00 70 21 94 01/25/23 00:00 134/84 01/24/23 23:45 69 17 95 01/24/23 23:45 146/83 H 01/24/23 23:30 70 19 95 01/24/23 23:30 146/85 H 01/24/23 23:15 71 16 96 01/24/23 23:15 120/86 01/24/23 23:00 67 16 96 01/24/23 23:00 151/81 H 01/25/23 00:00 71 01/24/23 22:45 73 16 96 01/24/23 22:45 148/85 H 01/24/23 22:30 70 15 97 01/24/23 22:30 146/84 H 01/24/23 22:15 71 16 97 01/24/23 22:15 168/84 H 01/24/23 22:00 71 12 96 01/24/23 22:00 157/82 H 01/24/23 22:18 100 H Pulse Ox O2 Del Method O2 Del Method 01/25/23 08:47 01/25/23 08:47 01/25/23 08:34 01/25/23 08:01 01/25/23 08:01 01/25/23 08:00 01/25/23 07:30 01/25/23 07:30 01/25/23 07:27 01/25/23 07:27 01/25/23 07:15 01/25/23 07:15 01/25/23 07:00 01/25/23 07:00 01/25/23 06:45 01/25/23 08:00 Room Air 01/25/23 08:00 96 Room Air 01/25/23 08:00 01/25/23 07:00 Room Air 01/25/23 04:00 01/25/23 04:00 01/25/23 03:46 01/25/23 03:46 01/25/23 03:45 01/25/23 03:30 01/25/23 03:30 01/25/23 03:15 01/25/23 03:15 01/25/23 03:00 01/25/23 03:00 01/25/23 02:45 01/25/23 02:45 01/25/23 02:32 01/25/23 02:32 01/25/23 02:30 01/25/23 02:15 01/25/23 02:15 01/25/23 02:00 01/25/23 02:00 01/25/23 01:45 01/25/23 01:45 01/25/23 01:30 01/25/23 01:30 01/25/23 01:15 01/25/23 01:15 01/25/23 01:00 01/25/23 01:00 01/25/23 00:45 01/25/23 00:45 01/25/23 00:30 01/25/23 00:30 01/25/23 00:15 01/25/23 00:15 01/25/23 00:00 01/25/23 00:00 01/24/23 23:45 01/24/23 23:45 01/24/23 23:30 01/24/23 23:30 01/24/23 23:15 01/24/23 23:15 01/24/23 23:00 01/24/23 23:00 01/25/23 00:00 01/24/23 22:45 01/24/23 22:45 01/24/23 22:30 01/24/23 22:30 01/24/23 22:15 01/24/23 22:15 01/24/23 22:00 01/24/23 22:00 01/24/23 22:18 PG Care Time/CCT Total # of Minutes Spent Total Time Spent with Patient: Total time spent is greater than 50% in coordination of care (as documented) at patient's floor/unit and/or counseling patient: Coding Level of Care Code 24506 SUB INP/OBS CARE 2/35MIN Diagnoses STEMI (ST elevation myocardial infarction) I21.3 HTN (hypertension) I10 Atherogenic dyslipidemia E78.5
[2023-01-25] MEDS: PANTOprazole 40 MG TAB PO SCH (10:34)
[2023-01-25] MEDS: LANTUS PER UNIT CHARGE SQ SCH ×2 (10:34→21:34)
--- NOTE | 2023-01-25 10:48 | Electrocardiogram Report ---
Test Reason : Blood Pressure : / mmHG Vent. Rate : 080 BPM Atrial Rate : 080 BPM P-R Int : 158 ms QRS Dur : 092 ms QT Int : 370 ms P-R-T Axes : 051 029 044 degrees QTc Int : 426 ms Normal sinus rhythm Normal ECG When compared with ECG of 24-JAN-2023 18:54, (unconfirmed) No significant change was found Confirmed by Ming Bowen ([id number]) on 01/25/2023 10:48:36 AM Referred By: REFERRED SELF Confirmed By:Cody Bowen
--- NOTE | 2023-01-25 10:52 | Electrocardiogram Report ---
Test Reason : Blood Pressure : / mmHG Vent. Rate : 084 BPM Atrial Rate : 084 BPM P-R Int : 158 ms QRS Dur : 094 ms QT Int : 368 ms P-R-T Axes : 056 018 069 degrees QTc Int : 434 ms Poor data quality, interpretation may be adversely affected Normal sinus rhythm Normal ECG When compared with ECG of 24-JAN-2023 19:25, (unconfirmed) No significant change was found Confirmed by Ming Bowen ([id number]) on 01/25/2023 10:52:21 AM Referred By: REFERRED SELF Confirmed By:Cody Bowen
--- NOTE | 2023-01-25 10:58 | Electrocardiogram Report ---
Test Reason : Blood Pressure : / mmHG Vent. Rate : 080 BPM Atrial Rate : 080 BPM P-R Int : 152 ms QRS Dur : 094 ms QT Int : 388 ms P-R-T Axes : 059 026 053 degrees QTc Int : 447 ms Normal sinus rhythm Normal ECG When compared with ECG of 24-JAN-2023 20:52, (unconfirmed) No significant change was found Confirmed by Ming Bowen ([id number]) on 01/25/2023 10:58:02 AM Referred By: REFERRED SELF Confirmed By:Cody Bowen
--- NOTE | 2023-01-25 11:02 | Electrocardiogram Report ---
Test Reason : Blood Pressure : / mmHG Vent. Rate : 082 BPM Atrial Rate : 082 BPM P-R Int : 146 ms QRS Dur : 096 ms QT Int : 354 ms P-R-T Axes : 053 023 059 degrees QTc Int : 413 ms Normal sinus rhythm ST elevation consider inferior injury or acute infarct ACUTE NE / STEMI Consider right ventricular involvement in acute inferior infarct Abnormal ECG When compared with ECG of 13-JUL-2018 11:58, ST now depressed in Lateral leads Confirmed by Ming Bowen ([id number]) on 01/25/2023 11:02:44 AM Referred By: REFERRED SELF Confirmed By:Cody Bowen
--- NOTE | 2023-01-25 11:49 | Billing Data ---
Date of Service January 25, 2023 Coding Level of Care Code 65128 SUB INP/OBS CARE MIN
--- NOTE | 2023-01-25 17:03 | Hospitalist Progress Note ---
Date of Service January 25, 2023 Assessment & Plan (1) STEMI (ST elevation myocardial infarction): Plan: Acute inferior wall AL taken to Fire Prevention Engineer with 2 drug-eluting stents placed in the right coronary artery. High risk with patient Patient has Brilinta choses antiplatelet agent suggest 1 to 2 years with aspirin and full length of therapy. Secondary disease modification with atorvastatin metoprolol lisinopril. Found to be diabetic we will institute diabetic treatment after diabetic education Transition out of ICU to med telemetry, reviewed all orders upon transfer (2) Elevated serum glucose: Plan: Acute issue uncontrolled high risk patient found to have a hemoglobin A1c of 11.1. Is on basal bolus insulin. Did have diabetic education with our educator. Is familiar with diabetes given family members with diabetic care on insulin Likely be home on metformin when appropriate time lapse has gone from cardiac catheterization and intravenous contrast dye. May consider SGLT P2 inhibitor with possibly 1 dose Lantus until his diabetes stabilizes. Will need close outpatient follow-up Discussed case with rate engineer (3) HTN (hypertension): Plan: Acute controlled typically on metoprolol adding lisinopril for afterload reduction given reduction in ejection fraction Evidence of a suppressed ejection fraction after cardiac event Admission and Anticipated Discharge Date Admission Date: January 24, 2023 Subjective Patient is without complaints or problems. Catheterization site is clean dry and intact. Patient newfound to have diabetes. Educated on risk factor reduction however need to determine final diabetic education and course of treatment as an outpatient Physical Exam Physical Exam: Awake alert appropriate card exam is regular without murmurs Lungs are clear without wheezes or crackles Wrist access site is clean dry and intact Extremities without edema. Results & Data Results & Data Vital Signs (Past 12 Hours) Vital Signs Temp Pulse Pulse Resp BP BP Pulse Ox 01/25/23 16:00 83 01/25/23 13:30 83 21 96 01/25/23 13:30 125/89 01/25/23 13:00 87 21 96 01/25/23 13:00 136/73 01/25/23 12:30 76 21 95 01/25/23 12:30 101/51 L 01/25/23 12:00 83 20 94 01/25/23 12:00 126/69 01/25/23 11:31 142/87 H 01/25/23 11:31 80 20 97 01/25/23 11:30 83 20 95 01/25/23 11:03 82 16 01/25/23 10:30 72 18 95 01/25/23 10:30 114/64 01/25/23 10:00 78 23 96 01/25/23 10:00 116/74 01/25/23 09:30 76 20 94 01/25/23 09:30 124/79 01/25/23 09:00 77 17 96 01/25/23 09:00 132/79 01/25/23 12:00 98.6 F 82 20 126/69 95 01/25/23 08:47 119/74 01/25/23 08:47 77 19 96 01/25/23 08:34 79 21 95 01/25/23 08:01 118/100 01/25/23 08:01 92 H 22 97 01/25/23 08:00 85 18 96 01/25/23 07:30 89 20 95 01/25/23 07:30 158/92 H 01/25/23 07:27 163/97 H 01/25/23 07:27 83 29 H 94 01/25/23 07:15 148/95 H 01/25/23 07:15 79 17 95 01/25/23 07:00 84 20 96 01/25/23 07:00 163/90 H 01/25/23 06:45 79 16 94 01/25/23 08:00 01/25/23 08:00 01/25/23 08:00 77 01/25/23 07:00 98.1 F 82 20 163/90 H 96 Pulse Ox O2 Del Method O2 Del Method 01/25/23 16:00 01/25/23 13:30 01/25/23 13:30 01/25/23 13:00 01/25/23 13:00 01/25/23 12:30 01/25/23 12:30 01/25/23 12:00 01/25/23 12:00 01/25/23 11:31 01/25/23 11:31 01/25/23 11:30 01/25/23 11:03 01/25/23 10:30 01/25/23 10:30 01/25/23 10:00 01/25/23 10:00 01/25/23 09:30 01/25/23 09:30 01/25/23 09:00 01/25/23 09:00 01/25/23 12:00 Room Air 01/25/23 08:47 01/25/23 08:47 01/25/23 08:34 01/25/23 08:01 01/25/23 08:01 01/25/23 08:00 01/25/23 07:30 01/25/23 07:30 01/25/23 07:27 01/25/23 07:27 01/25/23 07:15 01/25/23 07:15 01/25/23 07:00 01/25/23 07:00 01/25/23 06:45 01/25/23 08:00 Room Air 01/25/23 08:00 96 Room Air 01/25/23 08:00 01/25/23 07:00 Room Air Laboratory Results Reviewed CBC Reviewed PRP Reviewed [id number] glucose Reviewed troponin trending PG Care Time/CCT Total # of Minutes Spent Total Time Spent with Patient: Total time spent is greater than 50% in coordination of care (as documented) at patient's floor/unit and/or counseling patient: Coding Level of Care Code 41859 SUB INP/OBS CARE 3/50MIN Diagnoses STEMI (ST elevation myocardial infarction) I21.3 Elevated serum glucose R73.9 HTN (hypertension) I10
[2023-01-25 19:49] LABS: Basophils # (auto) 0.05 K/uL (0-0.2); Basophils % (auto) 0.6 %; Eosinophils # (auto) 0.15 K/uL (0-0.50); Eosinophils % (auto) 1.8 %; Hematocrit (blood only) 41.7 % (42.0-52.0); Hemoglobin 14.9 g/dl (14.0-18.0); Immature Granulocytes # (auto) 0.03 K/uL (0.01-0.20); Immature Granulocytes % (auto) 0.4 %; Lymphocytes % (auto) 30.8 %; Mean Corpuscular Hemoglobin 32.2 pg (25.0-34.0); Mean Corpuscular Hgb Conc 35.7 g/dL (32.0-36.0); Mean Corpuscular Volume 90.1 fL (80.0-100.0); Mean Platelet Volume 9.3 fL (9.4-12.4); Monocytes # (auto) 0.73 K/uL (0.11-0.59); Monocytes % (auto) 8.6 %; Neutrophils # (auto) 4.88 K/uL (1.40-6.50); Neutrophils % (auto) 57.8 %; Platelet Count 281 K/uL (130-400); RDW Coefficient of Variation 12.5 % (11.5-14.5); RDW Standard Deviation 40.7 fL (36.4-46.3); Red Blood Count 4.63 M/uL (4.70-6.10); White Blood Count 8.44 K/ul (4.8-10.8)
[2023-01-25 20:04] LABS: BUN Creatinine Ratio 16.9 (10-20); Creatinine Clr Calc Pharmacy 108.9 ml/min; Est GFR (African American) 105.5 ml/min; Potassium 4.1 mmol/L (3.5-5.1)
[2023-01-26] MEDS: ATORVASTATIN 40 MG TAB PO SCH (08:05)
[2023-01-26] MEDS: ASPIRIN 81 MG ECTAB PO SCH (08:05)
[2023-01-26] MEDS: TICAGRELOR 90 MG TAB PO SCH ×2 (08:06→20:37)
[2023-01-26] MEDS: PANTOprazole 40 MG TAB PO SCH (08:06)
[2023-01-26] MEDS: lisinopril 5 MG TAB PO SCH (08:06)
[2023-01-26] MEDS: METOPROLOL TARTRATE 25 MG TAB PO SCH ×2 (08:06→20:37)
[2023-01-26 08:13] LABS: Magnesium 1.9 mg/dl (1.7-2.4); Phosphorus 3.9 mg/dl (2.5-4.9)
[2023-01-26] MEDS: INSULIN ASPART PER UNIT CHARGE SC SCH ×5 (08:16→20:49)
[2023-01-26] MEDS: LANTUS PER UNIT CHARGE SQ SCH ×2 (08:16→20:48)
--- NOTE | 2023-01-26 12:08 | Electrocardiogram Report ---
Test Reason : Blood Pressure : / mmHG Vent. Rate : 071 BPM Atrial Rate : 071 BPM P-R Int : 144 ms QRS Dur : 088 ms QT Int : 394 ms P-R-T Axes : 040 018 013 degrees QTc Int : 428 ms Normal sinus rhythm Normal ECG When compared with ECG of 25-JAN-2023 04:49, No significant change was found Confirmed by Ming Bowen ([id number]) on 01/26/2023 12:08:10 PM Referred By: REFERRED SELF Confirmed By:Cody Bowen
--- NOTE | 2023-01-26 16:34 | Hospitalist Progress Note ---
Date of Service January 26, 2023 Assessment & Plan (1) STEMI (ST elevation myocardial infarction): Plan: Acute inferior wall DC taken to Hydropulper Operator with 2 drug-eluting stents placed in the right coronary artery. High risk with patient Patient has Brilinta choses antiplatelet agent suggest 1 to 2 years with aspirin and full length of therapy. Secondary disease modification with atorvastatin metoprolol lisinopril. Found to be diabetic we will institute diabetic treatment after diabetic education Transition out of ICU to med telemetry, reviewed all orders upon transfer (2) Elevated serum glucose: Plan: Acute issue uncontrolled high risk patient found to have a hemoglobin A1c of 11.1. Patient will be discharged to metformin 500 twice daily and Lantus 20 in the morning Have a carbohydrate restricted diet have frequent glucose monitoring follow-up with primary care Discussed case with community educator (3) HTN (hypertension): Plan: Acute controlled typically on metoprolol adding lisinopril for afterload reduction given reduction in ejection fraction Evidence of a suppressed ejection fraction after cardiac event Admission and Anticipated Discharge Date Admission Date: January 24, 2023 Subjective Patient is without complaints or problems. Catheterization site is clean dry and intact. Patient newfound to have diabetes. Educated on risk factor reduction however need to determine final diabetic education and course of treatment as an outpatient Physical Exam Physical Exam: Awake alert appropriate card exam is regular without murmurs Lungs are clear without wheezes or crackles Wrist access site is clean dry and intact Extremities without edema. Results & Data Results & Data Vital Signs (Past 12 Hours) Vital Signs Temp Pulse Pulse Resp BP Pulse Ox O2 Del Method 01/26/23 16:00 98.1 F 68 18 151/89 H 98 Room Air 01/26/23 08:00 67 01/26/23 08:00 98.1 F 79 18 157/79 H 97 Room Air PG Care Time/CCT Total # of Minutes Spent Total Time Spent with Patient: Total time spent is greater than 50% in coordination of care (as documented) at patient's floor/unit and/or counseling patient: Coding Level of Care Code 14806 SUB INP/OBS CARE 2/35MIN Diagnoses STEMI (ST elevation myocardial infarction) I21.3 Elevated serum glucose R73.9 HTN (hypertension) I10
--- NOTE | 2023-01-26 16:36 | Cardiology Progress Note ---
Date of Service January 26, 2023 Assessment & Plan (1) STEMI (ST elevation myocardial infarction): Plan: Status post PCI. Continue dual antiplatelet therapy with aspirin 81 mg daily and Brilinta 90 mg p.o. twice daily. He should be provided with a pharmacy card supplying Brilinta for 30 days at discharge. If not available on the unit this can be obtained from the cardiac catheterization lab. He is blood pressure is above target today. His heart rate is at target. We will continue guideline directed medical therapy with secondary prevention utilizing aspirin, metoprolol tartrate, lisinopril, and high intensity statin. We will titrate up to lisinopril to achieve target blood pressure reduction. (2) Hypertension: Plan: Blood pressure is now above target in the 150s systolic. Not surprising 24 hours post ME. He will continue metoprolol tartrate 25 mg p.o. twice daily and we will increase the lisinopril to 10 mg daily. Further outpatient titration as needed. (3) Atherogenic dyslipidemia: Plan: Patient is high risk. High intensity statin therapy with a atorvastatin 40 mg daily. Plan Patient will be appropriate for discharge after 48 hours post ME. He will need to follow-up with me in the cardiology clinic within 1 to 2 weeks of discharge. We will request an outpatient cardiac rehab consultation at that time. Admission and Anticipated Discharge Date Admission Date: January 24, 2023 Subjective Patient doing well. No chest pain, shortness of breath, or events overnight. No pain at the cardiac cath site. He has been walking around the hallways without any symptoms. States he feels very well. He wishes to be discharged. I reminded him that his myocardial infarction was only 24 hours ago and that we recommend at least 48 hours post ME hospitalization. Review of Systems Review of Systems: Negative except as per HPI Physical Exam Constitutional: Awake, alert, oriented obese middle-age male. No acute distress. Eyes: Extraocular muscles intact. Sclera are anicteric. ENMT: Oral mucosa is pink, moist, and intact. Neck: No JVD, bruits, or thyromegaly. Respiratory: Clear to auscultation bilaterally. No wheezing, rhonchi, or rales. Fair air movement. Cardiovascular: Regular rate and rhythm. No rubs or murmurs. S3 gallop. No edema. Musculoskeletal: no cyanosis or clubbing, extremities motor strength 5/5 (Radial access site is clean dry and intact.) Neurologic: Cognition intact. Speech fluent. No focal deficits. No tremor. Ambulates normally. Psychiatric: A+Ox3, euthymic affect Results & Data Vital Signs (Past 12 Hours) Vital Signs Temp Pulse Pulse Resp BP Pulse Ox O2 Del Method 01/26/23 16:00 36.7 C 68 18 151/89 H 98 Room Air 01/26/23 08:00 67 01/26/23 08:00 36.7 C 79 18 157/79 H 97 Room Air PG Care Time/CCT Total # of Minutes Spent Total Time Spent with Patient: Total time spent is greater than 50% in coordination of care (as documented) at patient's floor/unit and/or counseling patient: C[place] [address] SUB INP/OBS CARE 2/35MIN Patient Type Established Diagnoses STEMI (ST elevation myocardial infarction) I21.3 Hypertension I10 Hypertension type: unspecified Atherogenic dyslipidemia E78.5 (2) Hypertension Hypertension type: unspecified Qualified Code(s): I10 - Essential (primary) hypertension
[2023-01-26] MEDS ORDERED: lisinopril 5 MG TAB PO ONE (16:45)
[2023-01-26 22:41] LABS: Basophils # (auto) 0.06 K/uL (0-0.2); Basophils % (auto) 0.6 %; Eosinophils # (auto) 0.25 K/uL (0-0.50); Eosinophils % (auto) 2.7 %; Hematocrit (blood only) 42.7 % (42.0-52.0); Hemoglobin 15.3 g/dl (14.0-18.0); Immature Granulocytes # (auto) 0.02 K/uL (0.01-0.20); Immature Granulocytes % (auto) 0.2 %; Lymphocytes % (auto) 34.5 %; Mean Corpuscular Hemoglobin 32.1 pg (25.0-34.0); Mean Corpuscular Hgb Conc 35.8 g/dL (32.0-36.0); Mean Corpuscular Volume 89.5 fL (80.0-100.0); Mean Platelet Volume 9.5 fL (9.4-12.4); Monocytes % (auto) 7.6 %; Neutrophils # (auto) 5.04 K/uL (1.40-6.50); Neutrophils % (auto) 54.4 %; Platelet Count 281 K/uL (130-400); RDW Coefficient of Variation 12.1 % (11.5-14.5); RDW Standard Deviation 39.7 fL (36.4-46.3); Red Blood Count 4.77 M/uL (4.70-6.10); White Blood Count 9.27 K/ul (4.8-10.8)
[2023-01-26 23:05] LABS: BUN Creatinine Ratio 16.5 (10-20); Calcium 9.2 mg/dl (8.6-10.3); Est GFR (African American) 95.9 ml/min; Est GFR (Non-African American) 82.7 ml/min; Potassium 3.8 mmol/L (3.5-5.1)
[2023-01-27 06:23] LABS: Phosphorus 5.1 mg/dl (2.5-4.9)
[2023-01-27] MEDS: INSULIN ASPART PER UNIT CHARGE SC SCH (08:30)
[2023-01-27] MEDS: ATORVASTATIN 40 MG TAB PO SCH (08:31)
[2023-01-27] MEDS: ASPIRIN 81 MG ECTAB PO SCH (08:31)
[2023-01-27] MEDS: PANTOprazole 40 MG TAB PO SCH (08:32)
[2023-01-27] MEDS: METOPROLOL TARTRATE 25 MG TAB PO SCH (08:33)
[2023-01-27] MEDS: TICAGRELOR 90 MG TAB PO SCH (08:33)
[2023-01-27] MEDS: LANTUS PER UNIT CHARGE SQ SCH (08:34)
[2023-01-27] MEDS ORDERED: lisinopril 10 MG TAB PO SCH (09:00)
[2023-01-27] MEDS ORDERED: LANTUS PER UNIT CHARGE SQ ONE ×2 (10:26→11:56)
[2023-01-27] MEDS ORDERED: INSULIN ASPART PER UNIT CHARGE SC ONE (11:56)
--- NOTE | 2023-01-27 12:14 | Discharge Summary ---
Date of Service January 27, 2023 Admission HPI Per Admitting Provider 62yo male with no significant past medical history presenting with chest pain. Patient felt fairly well earlier today 01/24/23. He was seen at the dentist after which he developed some left arm pain and discomfort across his chest. He denied diaphoresis, SOB, nausea or exertional chest discomfort. Patient with no significant cardiac risk factors. He was last seen by his PCP in 2018. In the ER EKG with NSR at 82, ST elevation in inferior leads with depressions in I and aVL. Findings concerning for acute inferior STEMI. Heart Alert called from the ER and patient was taken to the paving and surfacing labourer. He was found to have stenosis of the mid-RCA with placement of BIANCA x 2 in early mid segment and in the proximal segment of the RCA. Patient was started on DAPT with ASA and Brillinta and transferred to the MICU for overnight care. During my encounter patient with no complaints. He denies chest pain, SOB or palpitations. No pain in right wrist or hand. Principal Diagnosis Inferior wall OR STEMI New onset diabetic discovery Discharge Exam Patient is stable for discharge her cardiac exam is regular catheterization site is clean dry and intact Discharge Data Allergies Allergy/AdvReac Type Severity Reaction Status Date / Time No Known Allergies Allergy Verified 12/07/18 12:16 Consultations 01/24/23 19:38 ED Decision to Admit Stat 01/24/23 20:33 Consult Internal Medicine Routine 01/24/23 20:40 Consult Wild Animal Caretaker Routine 01/24/23 21:03 Consult Wild Animal Caretaker Routine 01/25/23 09:51 Consult Cardiology Routine Procedures Performed Operation Date: 01/24/23 19:30 Actual Procedures p Cineradiography w/Routine Exam - Lance Mckeon MD, PhD p Aspiration/PCI w/BIANCA for Stemi - Lance Mckeon MD, PhD s Cath, Coronaries ONLY (no LV) - Lance Mckeon MD, PhD Ordered Studies 01/24/23 19:17 CL Cath Imgs for PACS use only Stat Diabetes Follow up Diabetes Follow-up Needed for HgbA1c >9%,Newly Diagnosed Diabetes Hospital Course (1) STEMI (ST elevation myocardial infarction): Acute inferior wall OR taken to Shipping Checker with 2 drug-eluting stents placed in the right coronary artery. High risk with patient Patient has Brilinta choses antiplatelet agent suggest 1 to 2 years with aspirin and full length of therapy. Secondary disease modification with atorvastatin metoprolol lisinopril. Found to be diabetic we will institute diabetic treatment after diabetic education Transition out of ICU to [facility] telemetry, reviewed all orders upon transfer (2) Elevated serum glucose: Acute issue uncontrolled high risk patient found to have a hemoglobin A1c of 11.1. Patient will be discharged to metformin 500 twice daily and Lantus 20 in the morning Have a carbohydrate restricted diet have frequent glucose monitoring follow-up with primary care Discussed case with ict educator (3) HTN (hypertension): Acute controlled typically on metoprolol adding lisinopril for afterload reduction given reduction in ejection fraction Evidence of a suppressed ejection fraction after cardiac event Total Time Total Time Spent Total Time Spent (In Minutes): It required greater than 30 minutes to prepare this patient for discharge Discharge Plan Discharge Items Patient Disposition: Home - Self-Care Reason For Visit: CHEST PAIN Discharge Diagnosis: STEMI HTN HLD Condition on Discharge: Good Activity: Per Instructions section Non-emergency contact: Primary Care Provider and Steam Setter Call non-emergency contact if: you have any medication questions, your symptoms worsen, your pain is not controlled, you have a fever, your wound has increased redness and your wound has increased drainage Follow-up/Referrals: Khris Dempsey MD [Physician] - Siri Reynolds MD [Primary Care Provider] - 02/04/23 11:30 am Diet: Carb Consistent or DM2 Addtl Attending Provider Instructions: ACTIVITY RECOMMENDATIONS: It is common to feel weak and fatigue for a few days. * Do not drive or operate any motorized equipment for the next three days. * Limit stair usage (2 or 3 trips a day only) for the next three days. * Do not lift anything heavier than 10 pounds for the next three days. * Do not engage in vigorous exercise or any sports for the next five days. * You may shower the day after your procedure, but do not immerse the area for three days. Cleanse the site gently with soap and water. SPECIAL CARE INSTRUCTIONS: * You may replace the pressure dressing or band-aid the morning after the procedure. * After your procedure, it is normal to have a small bruise or small lump at the site. Examine your site daily for any change in the bruise or lump, redness, swelling, drainage or numbness. Notify your doctor if any change. BLEEDING: * If there is a small amount of bleeding at the site, lie down and apply firm pressure with a clean cloth for ten minutes. When the bleeding stops, lie quietly keeping the procedure limb straight for six hours. Notify your doctor as soon as possible. * If the bleeding does not stop after ten minutes or if there is a large amount of bleeding or spurting, call 911 immediately. Continue to lie down and hold firm pressure until help arrives. SKIN IRRITATION: * You may experience some redness and/or swelling in the area where radiation was administered. If any skin irritation occurs, please contact your family physician. FOLLOW UP VISIT: Keep any scheduled doctor appointments. Addtl Waste Machine Offbearer Provider Instructions: Very important to keep follow-up appointments with your physicians. You are started on medications for diabetes this includes once a day injection of Lantus and metformin twice a day. This routine may be adjusted to be abandoned or augmented as the weeks go on. Is very important you check your blood glucose and please bring the results to your physician's office so we can have better gauge of how these medicines are working to control your blood sugar. Do not start your diabetic therapy until 27 January If you any questions Best to call Yesenia Sosa and diabetic education as she is well invested in this diabetic care plan for you, she can be reached at Dr. Dempsey's office and endocrinology for [facility] his numbers included in this document Pending Studies at Discharge: No Stand-Alone Forms: [facility], Smoking Cessation Medications and DC Order Prescriptions: New Brilinta 90 mg Tablet 90 mg PO BID Qty: 60 11RF atorvastatin 40 mg Tablet 40 mg PO QAM Qty: 30 11RF metoprolol tartrate 25 mg Tablet 25 mg PO BID Qty: 60 11RF aspirin 81 mg Tablet,Delayed Release (Dr/Ec) 81 mg PO QAM Qty: 90 3RF metformin 500 mg tablet 500 mg PO BID Qty: 60 5RF insulin glargine [Lantus Solostar U-100 Insulin] 100 unit/mL (3 mL) insulin pen 20 unit subcut QAM Qty: 15 0RF lisinopril 10 mg Tablet 10 mg PO QAM Qty: 30 5RF (DME) OneTouch Verio test strips Strip See Rx Instructions .Route Qty: 100 0RF Rx Instructions: three times a day (DME) lancets [OneTouch Delica Lancets] 33 gauge misc See Rx Instructions .Route Qty: 100 0RF Rx Instructions: three times a day (DME) pen needle, diabetic [Comfort EZ Pen Bartley] 32 gauge x 5/32" needle See Rx Instructions .Route Qty: 100 0RF Rx Instructions: daily Continued multivitamin Tablet 1 tab PO DAILY loperamide [Imodium A-D] 2 mg Tablet 1 tab PO QAM Super Antioxidant Capsule 1 cap PO DAILY omega 9-guy-eip-fish oil [Fish Oil] 1,000 mg (120 mg-180 mg) Capsule 2 cap PO QAM Discontinued naproxen sodium [Aleve] 220 mg Tablet 440 mg PO DAILY meloxicam [Mobic] 15 mg Tablet 15 mg PO QAM Discharge Orders: Discharge Order (Routine); Ordered 01/27/23 Ordered By: Maldonado Shaffer Admission Data Admit Date/Time: 01/24/23 20:48 Attending Provider: Maldonado Shaffer Admit Provider: Jessica Hendrickson Primary Care Provider: Siri Reynolds Other Providers: Jessica Hendrickson ; Walter Martinez ; Zander Polanco ; Zamzam Wright ; Andrey Bazan ; Matthieu Harris ; Bryon Anne ; Elizabeth Ureña ; Jayson Pyle Robert R. ; Maldonado Shaffer ; Zechariah Vargas ; Amber Marcos ; Diann Wang ; Asher Ji ; Omer Orellana ; Grace Johnson ; Masha Jacobson ; Ashu Garrison ; Pito Bush ; Elisha Gibson ; Elizabeth Hilario ; Nely Garcia ; Deep Tillman ; Jayson Tidwlel ; Ewelina Reaves ; Delonte Sandoval ; Omid Harkins,Estrada ; Ciera Valle ; Brandon Sheth ; Yohana Ansari ; Isak Esparza ; Rosangela Siddiqui ; Morales Kennedy ; Radha Sifuentes ; Mikael Dean ; Yaniv Lamb ; Valencia Machado ; Claire Saucedo ; Lionel Resendiz ; Pedro Pablo Concepcion ; Tony Blue ; Jamin Carranza ; Vega Gleason ; Lance Mckeon Other Interventions: Discharge Summary Assessment (RN) Last Done: 01/27/23 11:27 Coding Level of Care Code 99417 INP/OBS DISCH >30 MIN Diagnoses STEMI (ST elevation myocardial infarction) I21.3 Elevated serum glucose R73.9 HTN (hypertension) I10
== END 2023-01-27 11:57 | disposition home or self-care (01) | DRG 247 ==
LOC: ED 18:25 → CC 19:30 → 1E 20:48 → SUATTDRO 20:48 → 2N 01-25 18:36
PROC: CLB.CCO (2023-01-24 19:30)